=== PATIENT | female | born 1995 | race Caucasian/White ===

== ENCOUNTER 2018-05-24 12:47 | Observation (INO) | payer MEDICAID ==
[2018-05-24] MEDS ORDERED: ePHEDrine 50 MG/ML SDV IVPUSH ONE (18:18)
[2018-05-24] MEDS ORDERED: Lactated Ringers 1,000 ML IV ONE (18:18)
[2018-05-24] MEDS ORDERED: Sodium Chloride 0.9% 10 ML Syringe FLUSH PRN (18:18)
[2018-05-24] MEDS ORDERED: Acetaminophen 325 MG Tab PO PRN (18:18)
[2018-05-24] MEDS ORDERED: fentaNYL 100 MCG/2 ML SDV IVPUSH PRN (18:18)
[2018-05-24] MEDS ORDERED: Ondansetron 4 MG/2 ML SDV IV PRN (18:18)
[2018-05-24] MEDS ORDERED: Zolpidem 5 MG Tab PO PRN (21:19)
--- NOTE | 2018-05-24 21:38 | PCM.LDHP ---
L&D History of Present Illness - General Date of Service: 05/24/18 Admit Problem/Dx: Patient Status Order with Admit Dx/Problem 05/24/18 18:18 Patient Status [ADT] Routine Admission Diagnosis/Problem Admission Diagnosis/Problem - Related Data Allergies/Adverse Reactions: Allergies Allergy/AdvReac Type Severity Reaction Status Date / Time No Known Allergies Allergy Verified 05/24/18 12:55 Past Medical History - Past Health History Medical/Surgical History: Denies Medical/Surgical History Social & Family History - Family History HEENT: Reports: Impaired Vision Cardiac: Reports: Heart Murmur GI: Reports: GI bleed Neurological: Reports: TIA Endocrine/Metabolic: Reports: Diabetes, type II - Tobacco Use Smoking Status *Q: Never Smoker Second Hand Smoke Exposure: No - Caffeine Use Caffeine Use: Reports: None - Recreational Drug Use Recreational Drug Use: No H&P Review of Systems - Review of Systems: Review Of Systems: See Below General: Reports: No Symptoms HEENT: Reports: No Symptoms Pulmonary: Reports: No Symptoms Cardiovascular: Reports: No Symptoms Gastrointestinal: Reports: No Symptoms Genitourinary: Reports: No Symptoms Musculoskeletal: Reports: No Symptoms Skin: Reports: No Symptoms Psychiatric: Reports: No Symptoms Neurological: Reports: No Symptoms Hematologic/Lymphatic: Reports: No Symptoms Immunologic: Reports: No Symptoms L&D Exam - Exam Exam: See Below - Vital Signs Vital Signs: Last Vital Signs Temp 36.3 C 05/24/18 18:00 Pulse 79 05/24/18 18:00 Resp 16 05/24/18 18:00 BP 108/53 L 05/24/18 18:00 Pulse Ox 97 05/24/18 18:00 Weight: 77.111 kg - OB Specific Contraction Duration (sec): 70-90 Contraction Frequency (min): 4-8 Contraction Intensity: Moderate Presentation: Vertex - Viveros Score Viveros Score Cervix Position: Anterior Viveros Score Consistency: Soft Viveros Score Effacement: >80% Viveros Score Dilation: 3-4 cm Viveros Score 's Station: -1 ,0 Viveros Score Total: 11 - Exam General: Alert, Oriented, Cooperative HEENT: PERRLA, Conjunctiva Clear, EACs Clear, EOMI, Hearing Intact, Mucosa Moist & [place], Nares Patent, Normal Nasal Septum, Posterior Pharynx Clear, TMs Clear Neck: Supple, Trachea Midline Lungs: Clear to Auscultation, Normal Respiratory Effort Cardiovascular: Regular Rate, Regular Rhythm GI/Abdominal Exam: Normal Bowel Sounds, Soft, Non-Tender, No Organomegaly, No Distention, No Abnormal Bruit, No Mass, Pelvis Stable Genitourinary: Normal external exam, Normal bimanual exam, Normal speculum exam Back Exam: Normal Inspection, Full Range of Motion Extremities: Normal Inspection, Normal Range of Motion, Non-Tender, No Pedal Edema, Normal Capillary Refill Skin: Warm, Dry, Intact Neurological: Cranial Nerves Intact, Reflexes Equal Bilateral Psychiatric: Alert, Normal Affect, Normal Mood - Patient Data Lab Results Last 24 hrs: Laboratory Results - last 24 hr 05/24/18 05/24/18 05/24/18 Range/Units 13:03 13:21 18:18 WBC 12.2 H (4.5-11.0) K/uL RBC 4.16 (3.30-5.50) M/uL Hgb 13.3 (12.0-15.0) g/dL Hct 39.6 (36.0-48.0) % MCV 95 (80-98) fL MCH 32 H (27-31) pg MCHC 34 (32-36) % Plt Count 191 (150-400) K/uL Neut % (Auto) 71 H (36-66) % Lymph % (Auto) 17 L (24-44) % Power % (Auto) 10 H (2-6) % Eos % (Auto) 3 (2-4) % Baso % (Auto) 0 (0-1) % Urine Color Yellow Urine Appearance Slightly cloudy Urine pH 7.0 (4.5-8.0) Ur Specific [place] 1.015 (1.008-1.030) Urine Protein Negative (NEGATIVE) mg/dL Urine Glucose (UA) Normal (NEGATIVE) mg/dL Urine Ketones 15 H (NEGATIVE) mg/dL Urine Occult Blood Negative (NEGATIVE) Urine Nitrite Negative (NEGATIVE) Urine Bilirubin Negative (NEGATIVE) Urine Urobilinogen Normal (NORMAL) mg/dL Ur Leukocyte Esterase Negative (NEGATIVE) Urine RBC 0-5 (0-5) Urine WBC 0-5 (0-5) Ur Epithelial Cells Few Amorphous Sediment Not seen Urine Bacteria Not seen Urine Mucus Not seen Membrane Rupture Negative (NEGATIVE) Urine Opiates Screen (NEGATIVE) Ur Oxycodone Screen (NEGATIVE) Urine Methadone Screen (NEGATIVE) Ur Propoxyphene Screen (NEGATIVE) Ur Barbiturates Screen (NEGATIVE) Ur Tricyclics Screen (NEGATIVE) Ur Phencyclidine Scrn (NEGATIVE) Ur Amphetamine Screen (NEGATIVE) U Methamphetamines Scrn (NEGATIVE) Urine MDMA Screen (NEGATIVE) U Benzodiazepines Scrn (NEGATIVE) U Cocaine Metab Screen (NEGATIVE) U Marijuana (THC) Screen (NEGATIVE) 05/24/18 Range/Units 18:18 WBC (4.5-11.0) K/uL RBC (3.30-5.50) M/uL Hgb (12.0-15.0) g/dL Hct (36.0-48.0) % MCV (80-98) fL MCH (27-31) pg MCHC (32-36) % Plt Count (150-400) K/uL Neut % (Auto) (36-66) % Lymph % (Auto) (24-44) % Power % (Auto) (2-6) % Eos % (Auto) (2-4) % Baso % (Auto) (0-1) % Urine Color Urine Appearance Urine pH (4.5-8.0) Ur Specific [place] (1.008-1.030) Urine Protein (NEGATIVE) mg/dL Urine Glucose (UA) (NEGATIVE) mg/dL Urine Ketones (NEGATIVE) mg/dL Urine Occult Blood (NEGATIVE) Urine Nitrite (NEGATIVE) Urine Bilirubin (NEGATIVE) Urine Urobilinogen (NORMAL) mg/dL Ur Leukocyte Esterase (NEGATIVE) Urine RBC (0-5) Urine WBC (0-5) Ur Epithelial Cells Amorphous Sediment Urine Bacteria Urine Mucus Membrane Rupture (NEGATIVE) Urine Opiates Screen Negative (NEGATIVE) Ur Oxycodone Screen Negative (NEGATIVE) Urine Methadone Screen Negative (NEGATIVE) Ur Propoxyphene Screen Negative (NEGATIVE) Ur Barbiturates Screen Negative (NEGATIVE) Ur Tricyclics Screen Negative (NEGATIVE) Ur Phencyclidine Scrn Negative (NEGATIVE) Ur Amphetamine Screen Negative (NEGATIVE) U Methamphetamines Scrn Negative (NEGATIVE) Urine MDMA Screen Negative (NEGATIVE) U Benzodiazepines Scrn Negative (NEGATIVE) U Cocaine Metab Screen Negative (NEGATIVE) U Marijuana (THC) Screen Negative (NEGATIVE) Result Diagrams: 05/24/18 18:18 - Problem List (1) First stage of labor established SNOMED Code(s): 343856343 ICD Code: [id number] - Status: Acute Current Visit: Yes (2) SNOMED Code(s): 19265047 ICD Code: Z34.90 - ENCNTR FOR SUPRVSN OF NORMAL , UNSP, UNSP TRIMESTER Status: Acute Current Visit: Yes Qualifiers: Weeks of gestation: 39 weeks Qualified Code(s): Z3A.39 - 39 weeks gestation of Problem List Initiated/Reviewed/Updated: Yes Orders Last 24hrs: Active Orders 24 hr Category Date Time Status Patient Status [ADT] Routine ADT 05/24/18 18:18 Active Ambulate [RC] PER UNIT ROUTINE Care 05/24/18 18:18 Active Communication Order [RC] ASDIRECTED Care 05/24/18 18:18 Active Communication Order [RC] Per Unit Routine Care 05/24/18 18:18 Active Insert Urinary Catheter [OM.PC] ASDIRECTED Care 05/24/18 18:30 Ordered Local Anesthetic Infusion Pump [RC] ASDIRECTED Care 05/24/18 18:18 Active May Shower [RC] ASDIRECTED Care 05/24/18 18:18 Active Notify Provider Vital Signs [RC] PRN Care 05/24/18 18:18 Active Notify Provider [RC] PRN Care 05/24/18 18:18 Active OB Check [OM.PC] Click to Edit Care 05/24/18 12:49 Ordered PCEA Epidural [RC] ASDIRECTED Care 05/24/18 18:18 Active PCEA Epidural [RC] ASDIRECTED Care 05/24/18 18:19 Active Ready for Discharge [RC] PER UNIT ROUTINE Care 05/24/18 21:25 Active Up ad Sharon [RC] ASDIRECTED Care 05/24/18 18:18 Active Urinary Catheter Assessment [RC] ASDIRECTED Care 05/24/18 18:19 Active VTE/DVT Education [RC] Click to Edit Care 05/24/18 18:22 Active Verify Patient Consent Obtain [RC] ASDIRECTED Care 05/24/18 18:18 Active Vital Signs [RC] PER UNIT ROUTINE Care 05/24/18 18:18 Active Regular Diet [DIET] Diet 05/24/18 Dinner Active Acetaminophen [Tylenol] Med 05/24/18 18:18 Active 650 mg PO Q4H PRN Ondansetron [Zofran] Med 05/24/18 18:18 Active 4 mg IV Q4H PRN Sodium Chloride 0.9% [Saline Flush] Med 05/24/18 18:18 Active 10 ml FLUSH ASDIRECTED PRN Zolpidem [Ambien] Med 05/24/18 21:19 Active 5 mg PO BEDTIME PRN fentaNYL [Sublimaze] Med 05/24/18 18:18 Active 100 mcg IVPUSH Q1H PRN DVT/VTE Prophylaxis Reflex [OM.PC] Routine Oth 05/24/18 18:18 Ordered Epidural Catheter Management [OM.PC] Urgent Oth 05/24/18 18:18 Ordered Saline Lock Insert [OM.PC] Routine Oth 05/24/18 18:18 Ordered Resuscitation Status Routine Resus Stat 05/24/18 18:18 Ordered Medication Orders Acetaminophen (Tylenol) 650 mg PO Q4H PRN PRN Reason: Pain (Mild 1-3) and fever Fentanyl (Sublimaze) 100 mcg IVPUSH Q1H PRN PRN Reason: Pain (moderate 4-6) Ondansetron HCl (Zofran) 4 mg IV Q4H PRN PRN Reason: Nausea/Vomiting Sodium Chloride (Saline Flush) 10 ml FLUSH ASDIRECTED PRN PRN Reason: Keep Vein Open Zolpidem Tartrate (Ambien) 5 mg PO BEDTIME PRN PRN Reason: Insomnia Assessment/Plan Comment:: 05/24/2018 22 yo here at 39 3/7 gestational weeks Came in earlier thinking in labor SVE-3-4/80/-2 Contractions regular FHTs category one Patient still tolerating contractions with position changes at this time Plan- Continue to monitor labor Continue to monitor FHTs Pain medication per patient request Plan and anticipate a vaginal delivery
--- NOTE | 2018-05-24 21:39 | PCM.PNLD ---
Labor Progress Note - VS & Meds Vital Signs: Last Vital Signs Temp 36.3 C 05/24/18 18:00 Pulse 79 05/24/18 18:00 Resp 16 05/24/18 18:00 BP 108/53 L 05/24/18 18:00 Pulse Ox 97 05/24/18 18:00 Active Medications: Current Medications Acetaminophen (Tylenol) 650 mg PO Q4H PRN PRN Reason: Pain (Mild 1-3) and fever Fentanyl (Sublimaze) 100 mcg IVPUSH Q1H PRN PRN Reason: Pain (moderate 4-6) Ondansetron HCl (Zofran) 4 mg IV Q4H PRN PRN Reason: Nausea/Vomiting Sodium Chloride (Saline Flush) 10 ml FLUSH ASDIRECTED PRN PRN Reason: Keep Vein Open Zolpidem Tartrate (Ambien) 5 mg PO BEDTIME PRN PRN Reason: Insomnia Discontinued Medications Ephedrine Sulfate (Ephedrine Sulfate) 5 mg IVPUSH ONETIME ONE Stop: 05/24/18 18:19 Lactated Ringer's (Ringers, Lactated) 1,000 mls @ 999 mls/hr IV ONETIME ONE Stop: 05/24/18 19:18 - Uterine Contractions Uterine Monitoring Mode: External [place] Contraction Frequency (min): 4-8 Contraction Duration (sec): 70-90 Contraction Intensity: Moderate Uterine Resting Tone: Soft - Vaginal Exam Dilation (cm): 4 Effacement (Percent): 90 Cervical Position: Midposition Sterile Vaginal Exam Performed By: Inga Hernandez - Labor Progress (Free Text) Labor Progress: 05/24/2018 Labor stalled and now contractions are 4-8 minutes apart SVE remains unchanged Patient given options of sleeping here or going home Decision made to go home and return if more active labor Ambien 5mg PO given for sleep Education given on when to return to labor and delivery Discharged home now
== END 2018-05-24 21:45 | disposition home or self-care (01) ==
LOC: JP.OBCHECK 12:47 → JP.OB 18:15
PROVIDERS: ADMIT Advanced Practice Midwife; ATTEND Advanced Practice Midwife
DX: O47.1 False labor at or after 37 completed weeks of gestation (principal); Z3A.39 39 weeks gestation of pregnancy; O24.913 Unspecified diabetes mellitus in pregnancy, third trimester
CPT/HCPCS: 36415; 80305; 81001; 84112; 85025; 99211; A9270

== ENCOUNTER 2018-05-25 14:55 | Inpatient (IN) | payer MEDICAID ==
[2018-05-25] MEDS ORDERED: ePHEDrine 50 MG/ML SDV IVPUSH ONE (16:35)
[2018-05-25] MEDS ORDERED: Lactated Ringers 1,000 ML IV ONE (16:35)
[2018-05-25] MEDS ORDERED: Ondansetron 4 MG/2 ML SDV IV PRN (16:36)
[2018-05-25] MEDS ORDERED: Sodium Chloride 0.9% 10 ML Syringe FLUSH PRN (16:36)
--- NOTE | 2018-05-25 16:57 | PCM.LDHP ---
L&D History of Present Illness - General Date of Service: 05/25/18 Admit Problem/Dx: Patient Status Order with Admit Dx/Problem 05/25/18 16:36 Patient Status [ADT] Routine Admission Diagnosis/Problem Admission Diagnosis/Problem Source of Information: Patient History Limitations: Reports: No Limitations - Related Data Allergies/Adverse Reactions: Allergies Allergy/AdvReac Type Severity Reaction Status Date / Time No Known Allergies Allergy Verified 05/24/18 12:55 Home Medications: Home Meds PNV No.115/Iron Fumarate/FA [ 19 Chewable Tablet] 2 cap PO DAILY [History] Past Medical History - Past Health History Medical/Surgical History: Denies Medical/Surgical History Social & Family History - Family History HEENT: Reports: Impaired Vision Cardiac: Reports: Heart Murmur GI: Reports: GI bleed Neurological: Reports: TIA Endocrine/Metabolic: Reports: Diabetes, type II - Tobacco Use Smoking Status *Q: Never Smoker Second Hand Smoke Exposure: No - Caffeine Use Caffeine Use: Reports: None - Recreational Drug Use Recreational Drug Use: No H&P Review of Systems - Review of Systems: Review Of Systems: See Below General: Reports: No Symptoms HEENT: Reports: No Symptoms Pulmonary: Reports: No Symptoms Cardiovascular: Reports: No Symptoms Gastrointestinal: Reports: No Symptoms Genitourinary: Reports: No Symptoms Musculoskeletal: Reports: No Symptoms Skin: Reports: No Symptoms Psychiatric: Reports: No Symptoms Neurological: Reports: No Symptoms Hematologic/Lymphatic: Reports: No Symptoms Immunologic: Reports: No Symptoms L&D Exam - Exam Exam: See Below - Vital Signs Vital Signs: Last Vital Signs Temp 36.9 C 05/25/18 15:30 Pulse 102 H 05/25/18 15:30 Resp 16 05/25/18 15:30 BP 138/70 05/25/18 15:30 Pulse Ox 97 05/25/18 15:30 Weight: 77.564 kg - OB Specific Contraction Duration (sec): 80-90 Contraction Frequency (min): 3.5-4 Contraction Intensity: Moderate to Strong Presentation: Vertex - Viveros Score Viveros Score Cervix Position: Anterior Viveros Score Consistency: Soft Viveros Score Effacement: >80% Viveros Score Dilation: 3-4 cm Viveros Score Infant's Station: -1 ,0 Viveros Score Total: 11 - Exam General: Alert, Oriented HEENT: PERRLA, Conjunctiva Clear, EACs Clear, EOMI, Hearing Intact, Mucosa Moist & [place], Nares Patent, Normal Nasal Septum, Posterior Pharynx Clear, TMs Clear Neck: Supple, Trachea Midline Lungs: Clear to Auscultation, Normal Respiratory Effort Cardiovascular: Regular Rate, Regular Rhythm GI/Abdominal Exam: Normal Bowel Sounds, Soft, Non-Tender, No Organomegaly, No Distention, No Abnormal Bruit, No Mass, Pelvis Stable Rectal Exam: Normal Exam, Normal Rectal Tone Genitourinary: Normal external exam, Normal bimanual exam Back Exam: Normal Inspection, Full Range of Motion Extremities: Normal Inspection, Normal Range of Motion, Non-Tender, No Pedal Edema, Normal Capillary Refill Skin: Warm, Dry, Intact Neurological: Cranial Nerves Intact, Reflexes Equal Bilateral Psychiatric: Alert, Normal Affect, Normal Mood - Patient Data Lab Results Last 24 hrs: Laboratory Results - last 24 hr 05/25/18 05/25/18 05/25/18 Range/Units 15:09 15:42 16:36 Urine Color Yellow Urine Appearance Slightly cloudy Urine pH 7.0 (4.5-8.0) Ur Specific [place] 1.010 (1.008-1.030) Urine Protein Trace (NEGATIVE) mg/dL Urine Glucose (UA) Normal (NEGATIVE) mg/dL Urine Ketones Negative (NEGATIVE) mg/dL Urine Occult Blood Large (NEGATIVE) Urine Nitrite Negative (NEGATIVE) Urine Bilirubin Negative (NEGATIVE) Urine Urobilinogen Normal (NORMAL) mg/dL Ur Leukocyte Esterase Moderate (NEGATIVE) Urine RBC 0-5 (0-5) Urine WBC 10-20 H (0-5) Ur Epithelial Cells Many Amorphous Sediment Not seen Urine Bacteria Moderate Urine Mucus Few Membrane Rupture Positive H (NEGATIVE) Urine Opiates Screen Negative (NEGATIVE) Ur Oxycodone Screen Negative (NEGATIVE) Urine Methadone Screen Negative (NEGATIVE) Ur Propoxyphene Screen Negative (NEGATIVE) Ur Barbiturates Screen Negative (NEGATIVE) Ur Tricyclics Screen Negative (NEGATIVE) Ur Phencyclidine Scrn Negative (NEGATIVE) Ur Amphetamine Screen Negative (NEGATIVE) U Methamphetamines Scrn Negative (NEGATIVE) Urine MDMA Screen Negative (NEGATIVE) U Benzodiazepines Scrn Negative (NEGATIVE) U Cocaine Metab Screen Negative (NEGATIVE) U Marijuana (THC) Screen Negative (NEGATIVE) - Problem List (1) SROM (spontaneous rupture of membranes) SNOMED Code(s): 168061654 ICD Code: ZCP7059 - Status: Acute Current Visit: Yes (2) First stage of labor established SNOMED Code(s): 220346646 ICD Code: UYQ7549 - Status: Acute Current Visit: No (3) SNOMED Code(s): 74305049 ICD Code: Z34.90 - ENCNTR FOR SUPRVSN OF NORMAL , UNSP, UNSP TRIMESTER Status: Acute Current Visit: No Qualifiers: Weeks of gestation: 39 weeks Problem List Initiated/Reviewed/Updated: Yes Orders Last 24hrs: Active Orders 24 hr Category Date Time Status Patient Status [ADT] Routine ADT 05/25/18 16:36 Active Communication Order [RC] ASDIRECTED Care 05/25/18 16:36 Active Communication Order [RC] Per Unit Routine Care 05/25/18 16:35 Active Heart Tones [RC] PER UNIT ROUTINE Care 05/25/18 16:36 Active Non Stress Test [RC] Click to Edit Care 05/25/18 16:36 Active Insert Urinary Catheter [OM.PC] ASDIRECTED Care 05/25/18 16:45 Ordered Local Anesthetic Infusion Pump [RC] ASDIRECTED Care 05/25/18 16:35 Active May Shower [RC] ASDIRECTED Care 05/25/18 16:36 Active Notify Provider Vital Signs [RC] PRN Care 05/25/18 16:36 Active Notify Provider [RC] PRN Care 05/25/18 16:36 Active PCEA Epidural [RC] ASDIRECTED Care 05/25/18 16:35 Active PCEA Epidural [RC] ASDIRECTED Care 05/25/18 16:35 Active Up ad Sharon [RC] ASDIRECTED Care 05/25/18 16:36 Active Urinary Catheter Assessment [RC] ASDIRECTED Care 05/25/18 16:35 Active Verify Patient Consent Obtain [RC] ASDIRECTED Care 05/25/18 16:35 Active Vital Signs [RC] PER UNIT ROUTINE Care 05/25/18 16:36 Active Regular Diet [DIET] Diet 05/25/18 Dinner Active CBC WITH AUTO DIFF [HEME] Routine Lab 05/25/18 16:36 Ordered Lactated Ringers [Ringers, Lactated] 1,000 ml Med 05/25/18 16:35 Active IV ONETIME Ondansetron [Zofran] Med 05/25/18 16:36 Active 4 mg IV Q4H PRN Sodium Chloride 0.9% [Saline Flush] Med 05/25/18 16:36 Active 10 ml FLUSH ASDIRECTED PRN Epidural Catheter Management [OM.PC] Urgent Oth 05/25/18 16:35 Ordered Saline Lock Insert [OM.PC] Routine Oth 05/25/18 16:36 Ordered Resuscitation Status Routine Resus Stat 05/25/18 16:36 Ordered Medication Orders Lactated Ringer's (Ringers, Lactated) 1,000 mls @ 999 mls/hr IV ONETIME ONE Stop: 05/25/18 17:35 Ondansetron HCl (Zofran) 4 mg IV Q4H PRN PRN Reason: Nausea/Vomiting Sodium Chloride (Saline Flush) 10 ml FLUSH ASDIRECTED PRN PRN Reason: Keep Vein Open Assessment/Plan Comment:: 05/25/2018 22yo here at 39 4/7 weeks gestation SROM at home at 1345 Amnisure positive FHTs category one Contractions regular Patient tolerating pain currently but thinks she will want an epidural Plan- Monitor labor Monitor FHTs Up ad sharon Regular diet CBC, UA Start Pitocin per protocol Pain management per patient request Plan and anticipate a vaginal delivery
[2018-05-25] MEDS: Lactated Ringers 1,000 ML IV SCH ×2 (17:59→21:54)
[2018-05-25] MEDS ORDERED: ePHEDrine 50 MG/ML SDV ONE (21:59)
[2018-05-25] MEDS ORDERED: Ropivacaine 100 ML ONE (22:12)
[2018-05-25] MEDS ORDERED: Naloxone 0.4 MG/ML SDV IVPUSH PRN (23:18)
[2018-05-25] MEDS ORDERED: Ropivacaine 100 ML EPIDUR SCH (23:18)
[2018-05-25] MEDS ORDERED: ePHEDrine 50 MG/ML SDV IV PRN (23:18)
[2018-05-26] MEDS ORDERED: Acetaminophen 325 MG Tab PO PRN (00:40)
--- NOTE | 2018-05-26 01:36 | ANES ---
DATE OF SERVICE: 05/25/2018 LABOR EPIDURAL NOTE I was called this evening by the OB Department for a young lady requesting a labor epidural. I was at the bedside at approximately 2215 hours. Risks and benefits were reviewed with the patient and significant other. A brief history and physical was done with the patient. The patient has had a normal . Overall, no abnormal bleeding issues. No high blood pressure noted. No diabetes. I did notice on her H and P that she has a history of a murmur, but upon auscultation, no murmur was identified by me. Heart rate was regular and strong. The patient verbalized her understanding of the risks and the benefits and wishes to proceed with the labor epidural today. She was then sat at the edge of the bed. Betadine prep x3 to the lumbar region was done. Sterile drape was placed. 1% lidocaine skin wheal and deep was done. A 17-gauge Tuohy needle was inserted at approximately the L3- 4 position. Loss of resistance was achieved at approximately 5 to 5.5 cm. Catheter was then easily threaded. Touhy was then pulled and catheter was pulled back to approximately 13 cm. I then proceeded to give the patient a 3 mL test dose and sterile drape was then taken down. Catheter was fully secured at the 13 cm. The patient was then laid in the supine position with slight head of the bed elevation and left uterine displacement. The patient showed no signs of intravascular injection of local or subarachnoid block. I then proceeded to give 10 mL of 0.2% ropivacaine bolus via the epidural and started her on a 0.2% ropivacaine drip at 12 mL an hour. The patient tolerated the bolus without difficulty. Blood pressure was stable. Please refer to the nurse's notes for vital signs. Platelet count prior to doing the epidural was noted to be 186. We will continue to monitor the patient closely. Gopi Good CRNA /[id number]
[2018-05-26] MEDS: Lactated Ringers 1,000 ML IV SCH (01:37)
--- NOTE | 2018-05-26 02:58 | PCM.PNLD ---
Labor Progress Note - VS & Meds Vital Signs: Last Vital Signs Temp 35.9 C 05/26/18 01:40 Pulse 97 05/26/18 01:40 Resp 18 05/26/18 01:40 BP 101/54 L 05/26/18 01:40 Pulse Ox 98 05/26/18 01:40 Active Medications: Current Medications Acetaminophen (Tylenol) 650 mg PO Q4H PRN PRN Reason: Pain (mild 1-3) Ephedrine Sulfate (Ephedrine Sulfate) 5 - 10 mg IV ASDIRECTED PRN PRN Reason: Systolic BP less than 100 Oxytocin/Sodium Chloride (Pitocin In Ns 20 Units/1,000 Ml) 20 unit in 1,000 mls @ 6 mls/hr IV TITRATE BERNARD; Protocol Last Titration: 05/26/18 00:45 Dose: 14 munits/min, 42 mls/hr Lactated Ringer's (Ringers, Lactated) 1,000 mls @ 125 mls/hr IV ASDIRECTED BERNARD Last Admin: 05/26/18 01:37 Dose: 125 mls/hr Ropivacaine (Naropin 0.2%) 100 mls @ 12 mls/hr EPIDUR ASDIRECTED BERNARD; Protocol Naloxone HCl (Narcan) 0.1 mg IVPUSH Q5M PRN PRN Reason: IF RESP RATE LESS THAN 6 Ondansetron HCl (Zofran) 4 mg IV Q4H PRN PRN Reason: Nausea/Vomiting Sodium Chloride (Saline Flush) 10 ml FLUSH ASDIRECTED PRN PRN Reason: Keep Vein Open Discontinued Medications Ephedrine Sulfate (Ephedrine Sulfate) 5 mg IVPUSH ONETIME ONE Stop: 05/25/18 16:36 Ephedrine Sulfate (Ephedrine Sulfate) Confirm Administered Dose 50 mg .ROUTE .STK-MED ONE Stop: 05/25/18 22:00 Lactated Ringer's (Ringers, Lactated) 1,000 mls @ 999 mls/hr IV ONETIME ONE Stop: 05/25/18 17:35 Last Admin: 05/25/18 16:50 Dose: 999 mls/hr Ropivacaine (Naropin 0.2%) Confirm Administered Dose 100 mls @ as directed .ROUTE .STK-MED ONE Stop: 05/25/18 22:13 - Uterine Contractions Uterine Monitoring Mode: External [place] Contraction Frequency (min): 2-3 Contraction Duration (sec): 40-60 Contraction Intensity: Moderate Uterine Resting Tone: Soft - Monitoring Heart Rate (FHR) Variability: Moderate (6-25 bmp) - Vaginal Exam Dilation (cm): 4 Effacement (Percent): 90 Cervical Position: Midposition Sterile Vaginal Exam Performed By: Inga Hernandez - Labor Progress (Free Text) Labor Progress: 05/25/2018 Patient up at side of the bed. at bedside and supportive. FHTs category one Contractions regular Plan- Continue to monitor labor Continue to monitor FHTs Pain management per patient request Plan and anticipate a vaginal delivery
--- NOTE | 2018-05-26 03:02 | PCM.PNLD ---
Labor Progress Note - VS & Meds Vital Signs: Last Vital Signs Temp 35.9 C 05/26/18 01:40 Pulse 97 05/26/18 01:40 Resp 18 05/26/18 01:40 BP 101/54 L 05/26/18 01:40 Pulse Ox 98 05/26/18 01:40 Active Medications: Current Medications Acetaminophen (Tylenol) 650 mg PO Q4H PRN PRN Reason: Pain (mild 1-3) Ephedrine Sulfate (Ephedrine Sulfate) 5 - 10 mg IV ASDIRECTED PRN PRN Reason: Systolic BP less than 100 Oxytocin/Sodium Chloride (Pitocin In Ns 20 Units/1,000 Ml) 20 unit in 1,000 mls @ 6 mls/hr IV TITRATE BERNARD; Protocol Last Titration: 05/26/18 00:45 Dose: 14 munits/min, 42 mls/hr Lactated Ringer's (Ringers, Lactated) 1,000 mls @ 125 mls/hr IV ASDIRECTED BERNARD Last Admin: 05/26/18 01:37 Dose: 125 mls/hr Ropivacaine (Naropin 0.2%) 100 mls @ 12 mls/hr EPIDUR ASDIRECTED BERNARD; Protocol Naloxone HCl (Narcan) 0.1 mg IVPUSH Q5M PRN PRN Reason: IF RESP RATE LESS THAN 6 Ondansetron HCl (Zofran) 4 mg IV Q4H PRN PRN Reason: Nausea/Vomiting Sodium Chloride (Saline Flush) 10 ml FLUSH ASDIRECTED PRN PRN Reason: Keep Vein Open Discontinued Medications Ephedrine Sulfate (Ephedrine Sulfate) 5 mg IVPUSH ONETIME ONE Stop: 05/25/18 16:36 Ephedrine Sulfate (Ephedrine Sulfate) Confirm Administered Dose 50 mg .ROUTE .STK-MED ONE Stop: 05/25/18 22:00 Lactated Ringer's (Ringers, Lactated) 1,000 mls @ 999 mls/hr IV ONETIME ONE Stop: 05/25/18 17:35 Last Admin: 05/25/18 16:50 Dose: 999 mls/hr Ropivacaine (Naropin 0.2%) Confirm Administered Dose 100 mls @ as directed .ROUTE .STK-MED ONE Stop: 05/25/18 22:13 - Uterine Contractions Uterine Monitoring Mode: External [place] Contraction Frequency (min): 2-3 Contraction Duration (sec): 40-60 Contraction Intensity: Moderate Uterine Resting Tone: Soft - Monitoring Heart Rate (FHR) Variability: Moderate (6-25 bmp) - Vaginal Exam Dilation (cm): 4 Effacement (Percent): 90 Cervical Position: Midposition Sterile Vaginal Exam Performed By: Inga Hernandez - Labor Progress (Free Text) Labor Progress: 05/26/2018 AROM of forebag of m[place]ma[place] done at this time Contractions regular FHTs category one Patient comfortable with epidural Pitocin going per protocol Plan- Continue to monitor labor Continue to monitor FHTs Continue Pitocin per protocol Continue epidural for pain control Plan and anticipate a vaginal delivery
--- NOTE | 2018-05-26 05:51 | PCM.PNLD ---
Labor Progress Note - VS & Meds Vital Signs: Last Vital Signs Temp 35.9 C 05/26/18 01:40 Pulse 97 05/26/18 01:40 Resp 18 05/26/18 01:40 BP 101/54 L 05/26/18 01:40 Pulse Ox 98 05/26/18 01:40 Active Medications: Current Medications Acetaminophen (Tylenol) 650 mg PO Q4H PRN PRN Reason: Pain (mild 1-3) Ephedrine Sulfate (Ephedrine Sulfate) 5 - 10 mg IV ASDIRECTED PRN PRN Reason: Systolic BP less than 100 Oxytocin/Sodium Chloride (Pitocin In Ns 20 Units/1,000 Ml) 20 unit in 1,000 mls @ 6 mls/hr IV TITRATE BERNARD; Protocol Last Titration: 05/26/18 03:27 Dose: 8 munits/min, 24 mls/hr Lactated Ringer's (Ringers, Lactated) 1,000 mls @ 125 mls/hr IV ASDIRECTED BERNARD Last Admin: 05/26/18 01:37 Dose: 125 mls/hr Ropivacaine (Naropin 0.2%) 100 mls @ 12 mls/hr EPIDUR ASDIRECTED BERNARD; Protocol Last Admin: 05/26/18 04:05 Dose: 12 mls/hr, 12 mls/hr Naloxone HCl (Narcan) 0.1 mg IVPUSH Q5M PRN PRN Reason: IF RESP RATE LESS THAN 6 Ondansetron HCl (Zofran) 4 mg IV Q4H PRN PRN Reason: Nausea/Vomiting Sodium Chloride (Saline Flush) 10 ml FLUSH ASDIRECTED PRN PRN Reason: Keep Vein Open Discontinued Medications Ephedrine Sulfate (Ephedrine Sulfate) 5 mg IVPUSH ONETIME ONE Stop: 05/25/18 16:36 Last Admin: 05/26/18 05:31 Dose: Not Given Ephedrine Sulfate (Ephedrine Sulfate) Confirm Administered Dose 50 mg .ROUTE .STK-MED ONE Stop: 05/25/18 22:00 Last Admin: 05/26/18 05:32 Dose: Not Given Lactated Ringer's (Ringers, Lactated) 1,000 mls @ 999 mls/hr IV ONETIME ONE Stop: 05/25/18 17:35 Last Admin: 05/25/18 16:50 Dose: 999 mls/hr Ropivacaine (Naropin 0.2%) Confirm Administered Dose 100 mls @ as directed .ROUTE .STK-MED ONE Stop: 05/25/18 22:13 - Uterine Contractions Uterine Monitoring Mode: External [place] Contraction Frequency (min): 2-3 Contraction Duration (sec): 50-120 Contraction Intensity: Moderate to Strong Uterine Resting Tone: Soft - Monitoring Heart Rate (FHR) Variability: Moderate (6-25 bmp) - Vaginal Exam Dilation (cm): 10 Effacement (Percent): 100 Station: 0 Cervical Position: Anterior Sterile Vaginal Exam Performed By: Inga Hernandez - Labor Progress (Free Text) Labor Progress: 05/26/2018 Patient progressing nicely Currently 10/100/0 FHTs category one Contractions regular Plan- Continue to monitor labor Continue to monitor FHTs Continue epidural for pain management Continue Pitocin per protocol Plan and anticipate a vaginal delivery
[2018-05-26] MEDS ORDERED: Methylergonovine 0.2 MG/1 ML Amp ONE (08:02)
[2018-05-26] MEDS ORDERED: Carboprost Tromethamine 250 MCG/1 ML Amp ONE (08:02)
[2018-05-26] MEDS ORDERED: Misoprostol 200 MCG Tab ONE (08:02)
[2018-05-26] MEDS ORDERED: Methylergonovine 0.2 MG/1 ML Amp IM ONE (08:04)
[2018-05-26] MEDS ORDERED: Misoprostol 200 MCG Tab RECTAL ONE (08:33)
[2018-05-26] MEDS ORDERED: Ibuprofen 200 MG Tab, 24 Tab Bulk Bottle PO PRN (09:40)
[2018-05-26] MEDS ORDERED: Lanolin 100% Cream 40 GM Tube TOP PRN (09:40)
[2018-05-26] MEDS ORDERED: Benzocaine 20% Top Spray 56 GM Bottle TOP PRN (09:40)
[2018-05-26] MEDS ORDERED: Acetaminophen 325 MG Tab, 50 Tab Bulk Bottle PO PRN (09:40)
[2018-05-26] MEDS ORDERED: Witch Hazel Medicated Pads 100/Jar TOP PRN (09:40)
[2018-05-26] MEDS ORDERED: Acetaminophen/Codeine 300-30 MG Tab PO PRN (09:40)
[2018-05-26] MEDS: Docusate Sodium 100 MG Cap PO PRN (16:11)
--- NOTE | 2018-05-26 16:50 | PCM.DEL ---
L & D Note - General Info Date of Service: 05/26/18 Mother's Due Date: 05/28/18 - Delivery Note Labor: Spontaneous, Augmented by Oxytocin Delivery Outcome: Livebirth Infant Delivery Method: Spontaneous Vaginal Delivery-Single Infant Delivery Mode: Spontaneous Presentation: Right Occiput Anterior (EDWIN) Nuchal Cord: None Anesthesia Type: Epidural Amniotic Fluid Description: Clear Episiotomy Type: Right Mediolateral Laceration: None Suture type: Chromic Suture size: 3-0 Placenta: Intact, Spontaneous Cord: 3 Vessels Estimated Blood Loss: 500 Resuscitation Needed: No Adrian: Bulb Syringe, Stimulated, Warmed Provider: Inga Hernandez Post Delivery Events: Hemorrhage Second Stage Interventions: Reports: Encouragement Given, Laboring Down, Pushing Effectively, Pushing, Left Side, Pushing, McRobert's Position, Pushing, Right Side Delivery Comments (Free Text/Narrative):: 05/26/2018 22 yo delivered a viable female at 39 5/7 gestational weeks in EDWIN position vaginally with a vacuum assist at 0757 on 05/26/2018. Three pulls on vacuum, no pop offs noted. A mediolateral episiotomy was cut before delivery of the head. was then placed on mothers abdomen on prewarmed blankets, dried, and stimulated. Cord was noted to be on the shorter end so cord was double clamped and cut by provider shortly after delayed cord clamping. then was brought up on mothers just and bulb suctioned. Infant began to cry [id number]/8, weight-8lbs 14.7oz, length-20.5 inches. Placenta spontaneous and intact, 3 vessel cord. EBL-500ml, Episiotomy repaired in usual fashion, no other lacerations noted of cervix, vagina, perineum, vagina, or rectum. Infant now skin to skin with mother and both are in stable condition. Stages- [id number] Vacuum Extractor Progress Note - Alternative Labor Strategies Considered Alternative Labor Strategies Considered:: Reports: Yes Strategies Considered:: Reports: Contraction Intensity Adequate, Position Changes Used to Facilitate Rotation & Descent, Empty Bladder, Rest Indications Considered:: Reports: Yes Indications:: Reports: Prolonged 2nd Stage Time Out:: Reports: Yes - Patient Prepared Patient Prepared:: Reports: Yes Informed Consent:: Reports: Yes Risks: Reports: Yes Risks Include:: Reports: Laceration, Shoulder Dystocia, Maternal Injury Anesthesia/Analgesia Adequate:: Reports: Yes - Probability of Success High Probability of Success:: Reports: Yes Weight Estimated:: Reports: LGA Patient Diabetic:: Reports: No Pelvis Adequate:: Reports: Yes Position:: EDWIN Asynclitic:: Reports: No Station:: +2 - Application Time Maximum Application Time & Number of Pop-Offs Predetermined:: Reports: Yes Total Application Time (min): *max=20min: 1 Number of Times Cup Disengaged:: 0 Type of Vacuum Used:: Reports: Cup: Soft Vacuum Extraction: Successful - Exit Strategy Exit strategy available:: Reports: Yes and resuscitation teams readily available:: Reports: Yes - General Info Date of Service: 05/26/18 Functional Status: Reports: Pain Controlled - Review of Systems General: Reports: No Symptoms HEENT: Reports: No Symptoms Pulmonary: Reports: No Symptoms Cardiovascular: Reports: No Symptoms Gastrointestinal: Reports: No Symptoms Genitourinary: Reports: No Symptoms Musculoskeletal: Reports: No Symptoms Skin: Reports: No Symptoms Neurological: Reports: No Symptoms Psychiatric: Reports: No Symptoms - Patient Data Vitals - Most Recent: Last Vital Signs Temp 35.9 C 05/26/18 15:23 Pulse 64 05/26/18 15:23 Resp 16 05/26/18 15:23 BP 108/55 L 05/26/18 15:23 Pulse Ox 98 05/26/18 15:23 Weight - Most Recent: 77.564 kg I&O - Last 24 Hours: Intake & Output 05/26/18 05/26/18 05/26/18 06:59 14:59 22:59 Intake Total 1090 3275 Output Total 400 Balance 690 3275 Lab Results Last 24 Hours: Laboratory Results - last 24 hr 05/25/18 05/25/18 Range/Units 16:36 17:00 WBC 11.1 H (4.5-11.0) K/uL RBC 4.26 (3.30-5.50) M/uL Hgb 13.6 (12.0-15.0) g/dL Hct 40.5 (36.0-48.0) % MCV 95 (80-98) fL MCH 32 H (27-31) pg MCHC 34 (32-36) % Plt Count 186 (150-400) K/uL Neut % (Auto) 70 H (36-66) % Lymph % (Auto) 17 L (24-44) % [place] % (Auto) 9 H (2-6) % Eos % (Auto) 4 (2-4) % Baso % (Auto) 0 (0-1) % Urine Opiates Screen Negative (NEGATIVE) Ur Oxycodone Screen Negative (NEGATIVE) Urine Methadone Screen Negative (NEGATIVE) Ur Propoxyphene Screen Negative (NEGATIVE) Ur Barbiturates Screen Negative (NEGATIVE) Ur Tricyclics Screen Negative (NEGATIVE) Ur Phencyclidine Scrn Negative (NEGATIVE) Ur Amphetamine Screen Negative (NEGATIVE) U Methamphetamines Scrn Negative (NEGATIVE) Urine MDMA Screen Negative (NEGATIVE) U Benzodiazepines Scrn Negative (NEGATIVE) U Cocaine Metab Screen Negative (NEGATIVE) U Marijuana (THC) Screen Negative (NEGATIVE) Med Orders - Current: Current Medications Acetaminophen (Tylenol) 650 mg PO Q4H PRN PRN Reason: Pain (mild 1-3) Acetaminophen (Tylenol Bulk Bottle) 325 - 650 mg PO Q4H PRN PRN Reason: Pain Last Admin: 05/26/18 10:10 Dose: 325 mg Acetaminophen/Codeine Phosphate (Tylenol With Codeine No.3 300mg/30mg) 1 tab PO Q4H PRN PRN Reason: Pain (moderate 4-6) Last Admin: 05/26/18 10:29 Dose: 1 tab Benzocaine (Dfny-W-Ecrxgoi 20% [place]) 0 gm TOP Q4H PRN PRN Reason: Perineal Comfort Measure Last Admin: 05/26/18 10:10 Dose: 1 applic Docusate Sodium (Colace) 100 mg PO BID PRN PRN Reason: Constipation Last Admin: 05/26/18 16:11 Dose: 100 mg Emollient Ointment (Lansinoh Hpa) 0 gm TOP ASDIRECTED PRN PRN Reason: Sore Nipples Last Admin: 05/26/18 10:10 Dose: 1 applic Ephedrine Sulfate (Ephedrine Sulfate) 5 - 10 mg IV ASDIRECTED PRN PRN Reason: Systolic BP less than 100 Oxytocin/Sodium Chloride (Pitocin In Ns 20 Units/1,000 Ml) 20 unit in 1,000 mls @ 6 mls/hr IV TITRATE BERNARD; Protocol Last Titration: 05/26/18 06:30 Dose: 6 munits/min, 18 mls/hr Lactated Ringer's (Ringers, Lactated) 1,000 mls @ 125 mls/hr IV ASDIRECTED BERNARD Last Admin: 05/26/18 01:37 Dose: 125 mls/hr Ropivacaine (Naropin 0.2%) 100 mls @ 12 mls/hr EPIDUR ASDIRECTED BERNARD; Protocol Last Admin: 05/26/18 04:05 Dose: 12 mls/hr, 12 mls/hr Ibuprofen (Motrin Bulk Bottle) 600 mg PO Q6H PRN PRN Reason: Pain Last Admin: 05/26/18 10:09 Dose: 600 mg Naloxone HCl (Narcan) 0.1 mg IVPUSH Q5M PRN PRN Reason: IF RESP RATE LESS THAN 6 Ondansetron HCl (Zofran) 4 mg IV Q4H PRN PRN Reason: Nausea/Vomiting Sodium Chloride (Saline Flush) 10 ml FLUSH ASDIRECTED PRN PRN Reason: Keep Vein Open Witch Laurita (Tucks) 1 pad TOP ASDIRECTED PRN PRN Reason: Hemorrhoids Last Admin: 05/26/18 16:10 Dose: 1 package Discontinued Medications Carboprost Tromethamine (Hemabate Ds) Confirm Administered Dose 250 mcg .ROUTE .STK-MED ONE Stop: 05/26/18 08:03 Last Admin: 05/26/18 09:05 Dose: Not Given Ephedrine Sulfate (Ephedrine Sulfate) 5 mg IVPUSH ONETIME ONE Stop: 05/25/18 16:36 Last Admin: 05/26/18 05:31 Dose: Not Given Ephedrine Sulfate (Ephedrine Sulfate) Confirm Administered Dose 50 mg .ROUTE .STK-MED ONE Stop: 05/25/18 22:00 Last Admin: 05/26/18 05:32 Dose: Not Given Lactated Ringer's (Ringers, Lactated) 1,000 mls @ 999 mls/hr IV ONETIME ONE Stop: 05/25/18 17:35 Last Admin: 05/25/18 16:50 Dose: 999 mls/hr Ropivacaine (Naropin 0.2%) Confirm Administered Dose 100 mls @ as directed .ROUTE .STK-MED ONE Stop: 05/25/18 22:13 Oxytocin/Sodium Chloride (Pitocin In Ns 20 Units/1,000 Ml) 20 unit in 1,000 mls @ 999 mls/hr IV ONETIME ONE Stop: 05/26/18 09:30 Last Admin: 05/26/18 08:42 Dose: 999 mls/hr Methylergonovine Maleate (Methergine) 0.2 mg IM NOW ONE Stop: 05/26/18 08:05 Last Admin: 05/26/18 08:04 Dose: 0.2 mg Misoprostol (Cytotec) 800 mcg RECTAL ONETIME ONE Stop: 05/26/18 08:34 Last Admin: 05/26/18 08:33 Dose: 800 mcg - Exam General: Alert, Oriented, Cooperative HEENT: Pupils Equal, Pupils Reactive, EOMI, Mucous Membr. Moist/[place] Neck: Supple Lungs: Clear to Auscultation, Normal Respiratory Effort Cardiovascular: Regular Rate, Regular Rhythm GI/Abdominal Exam: Normal Bowel Sounds, Soft, Non-Tender, No Organomegaly, No Distention, No Abnormal Bruit, No Mass, Pelvis Stable (Female) Exam: Normal External Exam Back Exam: Normal Inspection, Full Range of Motion Extremities: Normal Inspection, Normal Range of Motion, Non-Tender, No Pedal Edema, Normal Capillary Refill Skin: Warm, Dry, Intact Neurological: No New Focal Deficit Psy/Mental Status: Alert, Normal Affect, Normal Mood - Problem List & Annotations (1) SROM (spontaneous rupture of membranes) SNOMED Code(s): 967882346 Code(s): GXW1243 - Status: Acute Current Visit: Yes (2) First stage of labor established SNOMED Code(s): 488560865 Code(s): NJO2882 - Status: Acute Current Visit: No (3) SNOMED Code(s): 05998711 Code(s): Z34.90 - ENCNTR FOR SUPRVSN OF NORMAL , UNSP, UNSP TRIMESTER Status: Acute Current Visit: No Qualifiers: Weeks of gestation: 39 weeks (4) Normal vaginal delivery SNOMED Code(s): 36464392 Code(s): O80 - ENCOUNTER FOR FULL-TERM UNCOMPLICATED DELIVERY Status: Acute Current Visit: Yes (5) Laceration of vagina SNOMED Code(s): 554438122 Code(s): S31.41XA - LACERATION W/O FOREIGN BODY OF VAGINA AND VULVA, INIT ENCNTR Status: Acute Current Visit: Yes Qualifiers: Encounter type: initial encounter Qualified Code(s): S31.41XA - Laceration without foreign body of vagina and vulva, initial encounter Annotation/Comment:: episiotomy was cut mediolateral (6) Discomfort at episiotomy site SNOMED Code(s): 760968384, 546939604 Code(s): G89.18 - OTHER ACUTE POSTPROCEDURAL PAIN Status: Acute Current Visit: Yes (7) Vacuum extractor delivery, delivered SNOMED Code(s): 641201168 Code(s): O66.5 - ATTEMPTED APPLICATION OF VACUUM EXTRACTOR AND FORCEPS Status: Acute Current Visit: Yes (8) () SNOMED Code(s): 262142362 Code(s): Z78.9 - OTHER SPECIFIED HEALTH STATUS Status: Acute Current Visit: Yes - Problem List Review Problem List Initiated/Reviewed/Updated: Yes - My Orders Last 24 Hours: My Active Orders 05/25/18 16:35 Epidural Catheter Management [OM.PC] Urgent 05/25/18 16:36 Patient Status [ADT] Routine May Shower [RC] ASDIRECTED Notify Provider Vital Signs [RC] PRN Up ad Coy [RC] ASDIRECTED Vital Signs [RC] PER UNIT ROUTINE Ondansetron [Zofran] 4 mg IV Q4H PRN Sodium Chloride 0.9% [Saline Flush] 10 ml FLUSH ASDIRECTED PRN Saline Lock Insert [OM.PC] Routine Resuscitation Status Routine 05/25/18 16:45 Insert Urinary Catheter [OM.PC] ASDIRECTED 05/25/18 17:00 Oxytocin/Normal Saline [Pitocin in NS 20 Units/1,000 ML] 20 unit in 1,000 ml IV TITRATE 05/25/18 18:00 Lactated Ringers [Ringers, Lactated] 1,000 ml IV ASDIRECTED 05/25/18 23:18 Naloxone [Narcan] 0.1 mg IVPUSH Q5M PRN Ropivacaine [Naropin 0.2%] 100 ml EPIDUR ASDIRECTED ePHEDrine [ePHEDrine sulfate] 5 - 10 mg IV ASDIRECTED PRN 05/25/18 Dinner Regular Diet [DIET] 05/26/18 00:40 Acetaminophen [Tylenol] 650 mg PO Q4H PRN 05/26/18 09:40 Patient Status [ADT] Routine Ambulate [RC] PER UNIT ROUTINE Vital Signs [RC] PFP Acetaminophen [Tylenol Bulk Bottle] 325 - 650 mg PO Q4H PRN Acetaminophen/Codeine [Tylenol with Codeine No.3 300MG/30MG] 1 tab PO Q4H PRN Benzocaine [Knsx-I-[place] 20% Garvin] See Dose Instructions TOP Q4H PRN Docusate Sodium [Colace] 100 mg PO BID PRN Ibuprofen [Motrin Bulk Bottle] 600 mg PO Q6H PRN Lanolin [Lansinoh HPA] 0 gm TOP ASDIRECTED PRN Witch Laurita [Tucks] 1 pad TOP ASDIRECTED PRN Assess Lochia [WOMSER] Per Unit Routine Assess Uterine Involution [WOMSER] Per Unit Routine DVT/VTE Prophylaxis Reflex [OM.PC] Routine 05/26/18 09:41 Sitz Bath [OM.PC] Per Unit Routine 05/26/18 09:42 VTE/DVT Education [RC] Click to Edit Ice Therapy [OM.PC] Per Unit Routine Perineal Care [OM.PC] Per Unit Routine 05/27/18 06:00 CBC WITH AUTO DIFF [HEME] Routine - Assessment Assessment:: 05/26/2018 22 yo G1 now P1 delivered Vaginally with assist of a vacuum extractor Mediolateral episiotomy repaired hemorrhage Labs-O positive, Hep B neg, Hep C neg, HIV neg, RPR nonreactive, Rubella Nonimmune, GBS negative - Plan Plan:: 05/25/2018 22yo here at 39 4/7 weeks gestation SROM at home at 1345 Amnisure positive FHTs category one Contractions regular Patient tolerating pain currently but thinks she will want an epidural Plan- Monitor labor Monitor FHTs Up ad coy Regular diet CBC, UA Start Pitocin per protocol Pain management per patient request Plan and anticipate a vaginal delivery 05/26/2018 Routine cares Encourage good perineal care Encourage and support CBC tomorrow
--- NOTE | 2018-05-27 07:32 | PCM.PNPP ---
- General Info Date of Service: 05/27/18 ( day 1) Functional Status: Reports: Pain Controlled, Tolerating Diet, Ambulating, Urinating - Review of Systems General: Reports: No Symptoms HEENT: Reports: No Symptoms Pulmonary: Reports: No Symptoms Cardiovascular: Reports: No Symptoms Gastrointestinal: Reports: No Symptoms Genitourinary: Reports: No Symptoms Musculoskeletal: Reports: No Symptoms Skin: Reports: No Symptoms Neurological: Reports: No Symptoms Psychiatric: Reports: No Symptoms - General Info Date of Service: 05/27/18 - Patient Data Vital Signs - Most Recent: Last Vital Signs Temp 35.9 C 05/27/18 05:45 Pulse 71 05/27/18 05:45 Resp 18 05/27/18 05:45 BP 96/52 L 05/27/18 05:45 Pulse Ox 98 05/27/18 05:45 Weight - Most Recent: 77.564 kg Lab Results - Last 24 Hours: Laboratory Results - last 24 hr 05/27/18 Range/Units 06:03 WBC 12.3 H (4.5-11.0) K/uL RBC 3.34 (3.30-5.50) M/uL Hgb 10.8 L D (12.0-15.0) g/dL Hct 32.2 L (36.0-48.0) % MCV 96 (80-98) fL MCH 32 H (27-31) pg MCHC 34 (32-36) % Plt Count 132 L (150-400) K/uL Neut % (Auto) 72 H (36-66) % Lymph % (Auto) 16 L (24-44) % [place] % (Auto) 8 H (2-6) % Eos % (Auto) 5 H (2-4) % Baso % (Auto) 0 (0-1) % Med Orders - Current: Current Medications Acetaminophen (Tylenol) 650 mg PO Q4H PRN PRN Reason: Pain (mild 1-3) Acetaminophen (Tylenol Bulk Bottle) 325 - 650 mg PO Q4H PRN PRN Reason: Pain Last Admin: 05/26/18 10:10 Dose: 325 mg Acetaminophen/Codeine Phosphate (Tylenol With Codeine No.3 300mg/30mg) 1 tab PO Q4H PRN PRN Reason: Pain (moderate 4-6) Last Admin: 05/26/18 10:29 Dose: 1 tab Benzocaine (Laha-Z-Ltccwtw 20% [place]) 0 gm TOP Q4H PRN PRN Reason: Perineal Comfort Measure Last Admin: 05/26/18 10:10 Dose: 1 applic Docusate Sodium (Colace) 100 mg PO BID PRN PRN Reason: Constipation Last Admin: 05/26/18 16:11 Dose: 100 mg Emollient Ointment (Lansinoh Hpa) 0 gm TOP ASDIRECTED PRN PRN Reason: Sore Nipples Last Admin: 05/26/18 10:10 Dose: 1 applic Ephedrine Sulfate (Ephedrine Sulfate) 5 - 10 mg IV ASDIRECTED PRN PRN Reason: Systolic BP less than 100 Oxytocin/Sodium Chloride (Pitocin In Ns 20 Units/1,000 Ml) 20 unit in 1,000 mls @ 6 mls/hr IV TITRATE BERNARD; Protocol Last Titration: 05/26/18 06:30 Dose: 6 munits/min, 18 mls/hr Lactated Ringer's (Ringers, Lactated) 1,000 mls @ 125 mls/hr IV ASDIRECTED BERNARD Last Admin: 05/26/18 01:37 Dose: 125 mls/hr Ropivacaine (Naropin 0.2%) 100 mls @ 12 mls/hr EPIDUR ASDIRECTED BERNARD; Protocol Last Admin: 05/26/18 04:05 Dose: 12 mls/hr, 12 mls/hr Ibuprofen (Motrin Bulk Bottle) 600 mg PO Q6H PRN PRN Reason: Pain Last Admin: 05/26/18 10:09 Dose: 600 mg Naloxone HCl (Narcan) 0.1 mg IVPUSH Q5M PRN PRN Reason: IF RESP RATE LESS THAN 6 Ondansetron HCl (Zofran) 4 mg IV Q4H PRN PRN Reason: Nausea/Vomiting Sodium Chloride (Saline Flush) 10 ml FLUSH ASDIRECTED PRN PRN Reason: Keep Vein Open Witch Laurita (Tucks) 1 pad TOP ASDIRECTED PRN PRN Reason: Hemorrhoids Last Admin: 05/26/18 16:10 Dose: 1 package Discontinued Medications Carboprost Tromethamine (Hemabate Ds) Confirm Administered Dose 250 mcg .ROUTE .STK-MED ONE Stop: 05/26/18 08:03 Last Admin: 05/26/18 09:05 Dose: Not Given Ephedrine Sulfate (Ephedrine Sulfate) 5 mg IVPUSH ONETIME ONE Stop: 05/25/18 16:36 Last Admin: 05/26/18 05:31 Dose: Not Given Ephedrine Sulfate (Ephedrine Sulfate) Confirm Administered Dose 50 mg .ROUTE .STK-MED ONE Stop: 05/25/18 22:00 Last Admin: 05/26/18 05:32 Dose: Not Given Lactated Ringer's (Ringers, Lactated) 1,000 mls @ 999 mls/hr IV ONETIME ONE Stop: 05/25/18 17:35 Last Admin: 05/25/18 16:50 Dose: 999 mls/hr Ropivacaine (Naropin 0.2%) Confirm Administered Dose 100 mls @ as directed .ROUTE .STK-MED ONE Stop: 05/25/18 22:13 Oxytocin/Sodium Chloride (Pitocin In Ns 20 Units/1,000 Ml) 20 unit in 1,000 mls @ 999 mls/hr IV ONETIME ONE Stop: 05/26/18 09:30 Last Admin: 05/26/18 08:42 Dose: 999 mls/hr Methylergonovine Maleate (Methergine) 0.2 mg IM NOW ONE Stop: 05/26/18 08:05 Last Admin: 05/26/18 08:04 Dose: 0.2 mg Misoprostol (Cytotec) 800 mcg RECTAL ONETIME ONE Stop: 05/26/18 08:34 Last Admin: 05/26/18 08:33 Dose: 800 mcg - Interaction Disposition, : [place] in Room with Family Infant Interaction: Holding Infant Infant Feeding: Breastfed Infant; Nursed Well Support Person: - Recovery Exam Fundal Tone: Firm Fundal Level: 1 Fingerbreadths Below Umbilicus Fundal Placement: Midline Lochia Amount: Small Lochia Color: Rubra/Red Perineum Description: Intact, Minimal Bruising/Swelling Episiotomy/Laceration: Approximated Bladder Status: Voiding Urinary Elimination: Voided - Exam General: Alert, Oriented, No Acute Distress HEENT: Pupils Equal, Pupils Reactive, Mucous Membr. Moist/[place] Neck: Supple Lungs: Clear to Auscultation, Normal Respiratory Effort Cardiovascular: Regular Rate, Regular Rhythm GI/Abdominal Exam: Normal Bowel Sounds, Soft, No Distention, No Mass, Pelvis Stable Extremities: Normal Inspection, Normal Range of Motion, No Pedal Edema, Normal Capillary Refill Skin: Warm, Dry Wound/Incisions: Healing Well (less sore than yesterday) Neurological: No New Focal Deficit, Normal Gait, Normal Speech, Normal Tone Psy/Mental Status: Alert, Normal Affect, Normal Mood - Problem List & Annotations (1) Lactating mother SNOMED Code(s): 645346594, 751965562 Code(s): Z39.1 - ENCOUNTER FOR CARE AND EXAMINATION OF LACTATING MOTHER Status: Acute Current Visit: Yes (2) Discomfort at episiotomy site SNOMED Code(s): 943007218, 427211665 Code(s): G89.18 - OTHER ACUTE POSTPROCEDURAL PAIN Status: Acute Current Visit: Yes (3) Laceration of vagina SNOMED Code(s): 458932140 Code(s): S31.41XA - LACERATION W/O FOREIGN BODY OF VAGINA AND VULVA, INIT ENCNTR Status: Acute Current Visit: Yes Qualifiers: Encounter type: initial encounter Qualified Code(s): S31.41XA - Laceration without foreign body of vagina and vulva, initial encounter Annotation/Comment:: episiotomy was cut mediolateral (4) Normal vaginal delivery SNOMED Code(s): 87808534 Code(s): O80 - ENCOUNTER FOR FULL-TERM UNCOMPLICATED DELIVERY Status: Acute Current Visit: Yes - Problem List Review Problem List Initiated/Reviewed/Updated: Yes - Assessment Assessment:: 05/26/2018 22 yo G1 now P1 delivered Vaginally with assist of a vacuum extractor Mediolateral episiotomy repaired hemorrhage Labs-O positive, Hep B neg, Hep C neg, HIV neg, RPR nonreactive, Rubella Nonimmune, GBS negative 05/27/18 22 year old day 1 Hgb stable at 10.8 and patient is asymptomatic Nipples intact, not sore reported as going well by mother Episiotomy healing well, sore - Plan Plan:: 05/25/2018 22yo here at 39 4/7 weeks gestation SROM at home at 1345 Amnisure positive FHTs category one Contractions regular Patient tolerating pain currently but thinks she will want an epidural Plan- Monitor labor Monitor FHTs Up ad coy Regular diet CBC, UA Start Pitocin per protocol Pain management per patient request Plan and anticipate a vaginal delivery 05/26/2018 Routine cares Encourage good perineal care Encourage and support CBC tomorrow 05/27/18 Continue routine cares Soak in tub today for perineal care Encourage routine RANGEL pain medication and stool softener once per day support today Ambulate in halls Anticipate discharge home tomorrow morning
[2018-05-27] MEDS: Docusate Sodium 100 MG Cap PO PRN (16:04)
[2018-05-28] MEDS: Docusate Sodium 100 MG Cap PO PRN (08:08)
--- NOTE | 2018-05-28 09:04 | PCM.PNPP ---
- General Info Date of Service: 05/28/18 (Discharge) Functional Status: Reports: Pain Controlled - Review of Systems General: Reports: No Symptoms HEENT: Reports: No Symptoms Pulmonary: Reports: No Symptoms Cardiovascular: Reports: No Symptoms Gastrointestinal: Reports: No Symptoms Genitourinary: Reports: No Symptoms Musculoskeletal: Reports: No Symptoms Skin: Reports: No Symptoms Neurological: Reports: No Symptoms Psychiatric: Reports: No Symptoms - General Info Date of Service: 05/28/18 - Patient Data Vital Signs - Most Recent: Last Vital Signs Temp 36.7 C 05/28/18 08:00 Pulse 64 05/28/18 08:00 Resp 16 05/28/18 08:00 BP 102/58 L 05/28/18 08:00 Pulse Ox 99 05/28/18 08:00 Weight - Most Recent: 77.564 kg Med Orders - Current: Current Medications Acetaminophen (Tylenol) 650 mg PO Q4H PRN PRN Reason: Pain (mild 1-3) Acetaminophen (Tylenol Bulk Bottle) 325 - 650 mg PO Q4H PRN PRN Reason: Pain Last Admin: 05/26/18 10:10 Dose: 325 mg Acetaminophen/Codeine Phosphate (Tylenol With Codeine No.3 300mg/30mg) 1 tab PO Q4H PRN PRN Reason: Pain (moderate 4-6) Last Admin: 05/26/18 10:29 Dose: 1 tab Benzocaine (Ttxu-C-Kdznebv 20% [place]) 0 gm TOP Q4H PRN PRN Reason: Perineal Comfort Measure Last Admin: 05/26/18 10:10 Dose: 1 applic Docusate Sodium (Colace) 100 mg PO BID PRN PRN Reason: Constipation Last Admin: 05/28/18 08:08 Dose: 100 mg Emollient Ointment (Lansinoh Hpa) 0 gm TOP ASDIRECTED PRN PRN Reason: Sore Nipples Last Admin: 05/26/18 10:10 Dose: 1 applic Ephedrine Sulfate (Ephedrine Sulfate) 5 - 10 mg IV ASDIRECTED PRN PRN Reason: Systolic BP less than 100 Oxytocin/Sodium Chloride (Pitocin In Ns 20 Units/1,000 Ml) 20 unit in 1,000 mls @ 6 mls/hr IV TITRATE BERNARD; Protocol Last Titration: 05/26/18 06:30 Dose: 6 munits/min, 18 mls/hr Lactated Ringer's (Ringers, Lactated) 1,000 mls @ 125 mls/hr IV ASDIRECTED [facility] Last Admin: 05/26/18 01:37 Dose: 125 mls/hr Ropivacaine (Naropin 0.2%) 100 mls @ 12 mls/hr EPIDUR ASDIRECTED BERNARD; Protocol Last Admin: 05/26/18 04:05 Dose: 12 mls/hr, 12 mls/hr Ibuprofen (Motrin Bulk Bottle) 600 mg PO Q6H PRN PRN Reason: Pain Last Admin: 05/26/18 10:09 Dose: 600 mg Naloxone HCl (Narcan) 0.1 mg IVPUSH Q5M PRN PRN Reason: IF RESP RATE LESS THAN 6 Ondansetron HCl (Zofran) 4 mg IV Q4H PRN PRN Reason: Nausea/Vomiting Sodium Chloride (Saline Flush) 10 ml FLUSH ASDIRECTED PRN PRN Reason: Keep Vein Open Domi Shay (Henrique) 1 pad TOP ASDIRECTED PRN PRN Reason: Hemorrhoids Last Admin: 05/26/18 16:10 Dose: 1 package Discontinued Medications Carboprost Tromethamine (Hemabate Ds) Confirm Administered Dose 250 mcg .ROUTE .STK-MED ONE Stop: 05/26/18 08:03 Last Admin: 05/26/18 09:05 Dose: Not Given Ephedrine Sulfate (Ephedrine Sulfate) 5 mg IVPUSH ONETIME ONE Stop: 05/25/18 16:36 Last Admin: 05/26/18 05:31 Dose: Not Given Ephedrine Sulfate (Ephedrine Sulfate) Confirm Administered Dose 50 mg .ROUTE .STK-MED ONE Stop: 05/25/18 22:00 Last Admin: 05/26/18 05:32 Dose: Not Given Lactated Ringer's (Ringers, Lactated) 1,000 mls @ 999 mls/hr IV ONETIME ONE Stop: 05/25/18 17:35 Last Admin: 05/25/18 16:50 Dose: 999 mls/hr Ropivacaine (Naropin 0.2%) Confirm Administered Dose 100 mls @ as directed .ROUTE .STK-MED ONE Stop: 05/25/18 22:13 Oxytocin/Sodium Chloride (Pitocin In Ns 20 Units/1,000 Ml) 20 unit in 1,000 mls @ 999 mls/hr IV ONETIME ONE Stop: 05/26/18 09:30 Last Admin: 05/26/18 08:42 Dose: 999 mls/hr Methylergonovine Maleate (Methergine) 0.2 mg IM NOW ONE Stop: 05/26/18 08:05 Last Admin: 05/26/18 08:04 Dose: 0.2 mg Misoprostol (Cytotec) 800 mcg RECTAL ONETIME ONE Stop: 05/26/18 08:34 Last Admin: 05/26/18 08:33 Dose: 800 mcg - Interaction Disposition, : [place] in Room with Family Interaction: Holding Infant Infant Feeding: Breastfed Infant; Nursed Well Support Person: - Recovery Exam Fundal Tone: Firm Fundal Level: 3 Fingerbreadths Below Umbilicus Fundal Placement: Midline Lochia Amount: Small Lochia Color: Rubra/Red Perineum Description: Intact, Minimal Bruising/Swelling Episiotomy/Laceration: Approximated Bladder Status: Voiding Urinary Elimination: Voided - Exam General: Alert, Oriented HEENT: Pupils Equal Neck: Supple Lungs: Clear to Auscultation Cardiovascular: Regular Rate, Regular Rhythm GI/Abdominal Exam: Normal Bowel Sounds, Soft, Non-Tender, No Organomegaly, No Distention, No Abnormal Bruit, No Mass, Pelvis Stable Extremities: Normal Inspection, Normal Range of Motion, Non-Tender, No Pedal Edema, Normal Capillary Refill Skin: Warm, Dry, Intact Wound/Incisions: Healing Well Neurological: No New Focal Deficit Psy/Mental Status: Alert, Normal Affect, Normal Mood - Problem List & Annotations (1) Lactating mother SNOMED Code(s): 496450246, 362273010 Code(s): Z39.1 - ENCOUNTER FOR CARE AND EXAMINATION OF LACTATING MOTHER Status: Acute Current Visit: Yes (2) Discomfort at episiotomy site SNOMED Code(s): 576298047, 951008107 Code(s): G89.18 - OTHER ACUTE POSTPROCEDURAL PAIN Status: Acute Current Visit: Yes (3) Laceration of vagina SNOMED Code(s): 017936440 Code(s): S31.41XA - LACERATION W/O FOREIGN BODY OF VAGINA AND VULVA, INIT ENCNTR Status: Acute Current Visit: Yes Qualifiers: Encounter type: initial encounter Qualified Code(s): S31.41XA - Laceration without foreign body of vagina and vulva, initial encounter Annotation/Comment:: episiotomy was cut mediolateral (4) Normal vaginal delivery SNOMED Code(s): 29490452 Code(s): O80 - ENCOUNTER FOR FULL-TERM UNCOMPLICATED DELIVERY Status: Acute Current Visit: Yes - Problem List Review Problem List Initiated/Reviewed/Updated: Yes - My Orders Last 24 Hours: My Active Orders 05/28/18 08:59 Ready for Discharge [RC] PER UNIT ROUTINE - Assessment Assessment:: 05/26/2018 22 yo G1 now P1 delivered Vaginally with assist of a vacuum extractor Mediolateral episiotomy repaired hemorrhage Labs-O positive, Hep B neg, Hep C neg, HIV neg, RPR nonreactive, Rubella Nonimmune, GBS negative 05/27/18 22 year old day 1 Hgb stable at 10.8 and patient is asymptomatic Nipples intact, not sore reported as going well by mother Episiotomy healing well, sore 05/28/18 day 2 , expresses readiness to go home Episiotomy less sore today Bleeding scant to light, no clots Nipples intact, mildly sore, going very well course uncomplicated - Plan Plan:: 05/25/2018 22yo here at 39 4/7 weeks gestation SROM at home at 1345 Amnisure positive FHTs category one Contractions regular Patient tolerating pain currently but thinks she will want an epidural Plan- Monitor labor Monitor FHTs Up ad coy Regular diet CBC, UA Start Pitocin per protocol Pain management per patient request Plan and anticipate a vaginal delivery 05/26/2018 Routine cares Encourage good perineal care Encourage and support CBC tomorrow 05/27/18 Continue routine cares Soak in tub today for perineal care Encourage routine RANGEL pain medication and stool softener once per day support today Ambulate in halls Anticipate discharge home tomorrow morning 05/28/18 Discharge home today Continue support as needed 6 week exam, 2 week nurse visit for depression screening Education done regarding bleeding, infection, and normal course
== END 2018-05-28 11:30 | disposition home or self-care (01) | DRG 806 ==
LOC: JP.OBCHECK 14:55 → JP.OB 16:06 → OBSVTOIN 05-26 07:57 → JP.MS 05-26 14:43
PROVIDERS: ADMIT Advanced Practice Midwife; ATTEND Advanced Practice Midwife
PROC: 00HU33Z Insertion of Infusion Device into Spinal Canal, Percutaneous Approach (ICD-10-PCS; 2018-05-25)
PROC: 10D07Z6 Extraction of Products of Conception, Vacuum, Via Natural or Artificial Opening (ICD-10-PCS; principal; 2018-05-26)
PROC: 0W8NXZZ Division of Female Perineum, External Approach (ICD-10-PCS; 2018-05-26)
PROC: 0HQ9XZZ Repair Perineum Skin, External Approach (ICD-10-PCS; 2018-05-26)
DX: O36.63X0 Maternal care for excessive fetal growth, third trimester, not applicable or unspecified (principal); O72.1 Other immediate postpartum hemorrhage; Z37.0 Single live birth; Z3A.39 39 weeks gestation of pregnancy
CPT/HCPCS: 36415; 51702; 59409; 80305-QW; 81001; 84112; 85025; 99211; A9270-GY; J2210; J2590; J2795; J7120

== ENCOUNTER 2020-03-24 19:31 | Inpatient (IN) | payer OTHER ==
[2020-03-24] MEDS ORDERED: fentaNYL 100 MCG/2 ML SDV IVPUSH PRN (20:59)
[2020-03-24] MEDS ORDERED: Sodium Chloride 0.9% 10 ML Syringe FLUSH PRN ×2 (20:59→22:25)
--- NOTE | 2020-03-24 21:07 | PCM.LDHP ---
L&D History of Present Illness - General Date of Service: 03/24/20 (labor) Admit Problem/Dx: Patient Status Order with Admit Dx/Problem 03/24/20 20:59 Patient Status [ADT] Routine Admission Diagnosis/Problem Admission Diagnosis/Problem Labor established Source of Information: Patient History Limitations: Reports: No Limitations - History of Present Illness Introduction:: This 24 year old presented in labor. Yasmany every 3 minutes. No leaking of fluid and baby moving. She is 39 3/7 weeks . Contractions started this morning and were on and off. This evening they became stronger and consistent. Lbas: GBS neg HIV neg HGB 11.8 PLT 194 ABO O pos Timing/Duration: Reports: minutes: (3), constant/continuous Location, : Reports: Lower back Quality: Reports: Ache Severity: Moderate Improves with: Reports: None Worsens with: Reports: None - Related Data Allergies/Adverse Reactions: Allergies Allergy/AdvReac Type Severity Reaction Status Date / Time No Known Allergies Allergy Verified 05/24/18 12:55 Home Medications: Home Meds No115/Iron/Folic Acid [ 19 Chewable Tablet] 2 cap PO DAILY 05/25/18 [History] Past Medical History - Past Health History Medical/Surgical History: Denies Medical/Surgical History Gastrointestinal History: Reports: Other (See Below) Other Gastrointestinal History: hx stomach ulcers FREE LANCE ARTIST History: Reports: : 2 Para: 1 LMP (Approximate): (THIERRY 03/28/20) Hematologic History: Reports: Other (See Below) Other Hematologic History: taking iron this , not diagnosed as deficient Dermatologic History: Reports: Other (See Below) Other Dermatologic History: cyst removed on left cheek - Infectious Disease History Infectious Disease History: Reports: Chicken Pox Social & Family History - Family History Family Medical History: No Pertinent Family History HEENT: Reports: Impaired Vision Cardiac: Reports: Heart Murmur GI: Reports: GI bleed Neurological: Reports: TIA Endocrine/Metabolic: Reports: Diabetes, type II - Tobacco Use Tobacco Use Status *Q: Never Tobacco User - Caffeine Use Caffeine Use: Reports: None - Recreational Drug Use Recreational Drug Use: No H&P Review of Systems - Review of Systems: Review Of Systems: See Below L&D Exam - Exam Exam: See Below - Vital Signs Vital Signs: Last Vital Signs Temp 97.5 F 03/24/20 20:00 Pulse 94 03/24/20 20:00 Resp 16 03/24/20 20:00 BP 128/66 03/24/20 20:00 Pulse Ox 97 03/24/20 20:00 - OB Specific Contraction Intensity: Moderate Movement: Active Heart Tones: Present Heart Tones per Min: 145 Heart Rate (FHR) Variability: Moderate (6-25 bmp) Presentation: Vertex Estimated Weight: 8-9 pounds - Viveros Score Viveros Score Cervix Position: Anterior Viveros Score Consistency: Soft Viveros Score Effacement: >80% Viveros Score Dilation: > 5 cm Viveros Score 's Station: +1, +2 Viveros Score Total: 13 - Exam General: Alert, Oriented HEENT: PERRLA, Mucosa Moist & [place], Pupils Equal Neck: Trachea Midline Lungs: Normal Respiratory Effort Cardiovascular: Regular Rate, Regular Rhythm GI/Abdominal Exam: Soft, Non-Tender Rectal Exam: Normal Rectal Tone Genitourinary: Cervical dilitation, Enlarged uterus, Other (AROM large amouint of clear fluid.) Back Exam: Normal Inspection, Full Range of Motion Extremities: No Pedal Edema, Normal Capillary Refill Skin: Warm Neurological: Cranial Nerves Intact Psychiatric: Alert, Normal Affect, Normal Mood - Patient Data Lab Results Last 24 hrs: Laboratory Results - last 24 hr 03/24/20 03/24/20 03/24/20 Range/Units 19:46 20:17 20:20 WBC 9.5 (4.5-11.0) K/uL RBC 3.86 (3.30-5.50) M/uL Hgb 11.8 L (12.0-15.0) g/dL Hct 37.1 (36.0-48.0) % MCV 96 (80-98) fL MCH 31 (27-31) pg MCHC 32 (32-36) % Plt Count 194 (150-400) K/uL Urine Color Yellow (YELLOW) Urine Appearance Slightly cloudy A (CLEAR) Urine pH 7.0 (5.0-8.0) Ur Specific [place] 1.015 (1.008-1.030) Urine Protein Negative (NEGATIVE) mg/dL Urine Glucose (UA) Negative (NEGATIVE) mg/dL Urine Ketones Trace H (NEGATIVE) mg/dL Urine Occult Blood Negative (NEGATIVE) Urine Nitrite Negative (NEGATIVE) Urine Bilirubin Negative (NEGATIVE) Urine Urobilinogen 0.2 (0.2-1.0) EU/dL Ur Leukocyte Esterase Negative (NEGATIVE) Urine RBC Not seen (0-5) Urine WBC Not seen (0-5) Ur Epithelial Cells Few Urine Bacteria Rare Urine Opiates Screen Negative (NEGATIVE) Ur Oxycodone Screen Negative (NEGATIVE) Urine Methadone Screen Negative (NEGATIVE) Ur Propoxyphene Screen Negative (NEGATIVE) Ur Barbiturates Screen Negative (NEGATIVE) Ur Tricyclics Screen Negative (NEGATIVE) Ur Phencyclidine Scrn Negative (NEGATIVE) Ur Amphetamine Screen Negative (NEGATIVE) U Methamphetamines Scrn Negative (NEGATIVE) Urine MDMA Screen Negative (NEGATIVE) U Benzodiazepines Scrn Negative (NEGATIVE) U Cocaine Metab Screen Negative (NEGATIVE) U Marijuana (THC) Screen Negative (NEGATIVE) SARS CoV-2 RNA Rapid GIACOMO 03/24/20 Range/Units 20:20 WBC (4.5-11.0) K/uL RBC (3.30-5.50) M/uL Hgb (12.0-15.0) g/dL Hct (36.0-48.0) % MCV (80-98) fL MCH (27-31) pg MCHC (32-36) % Plt Count (150-400) K/uL Urine Color (YELLOW) Urine Appearance (CLEAR) Urine pH (5.0-8.0) Ur Specific [place] (1.008-1.030) Urine Protein (NEGATIVE) mg/dL Urine Glucose (UA) (NEGATIVE) mg/dL Urine Ketones (NEGATIVE) mg/dL Urine Occult Blood (NEGATIVE) Urine Nitrite (NEGATIVE) Urine Bilirubin (NEGATIVE) Urine Urobilinogen (0.2-1.0) EU/dL Ur Leukocyte Esterase (NEGATIVE) Urine RBC (0-5) Urine WBC (0-5) Ur Epithelial Cells Urine Bacteria Urine Opiates Screen (NEGATIVE) Ur Oxycodone Screen (NEGATIVE) Urine Methadone Screen (NEGATIVE) Ur Propoxyphene Screen (NEGATIVE) Ur Barbiturates Screen (NEGATIVE) Ur Tricyclics Screen (NEGATIVE) Ur Phencyclidine Scrn (NEGATIVE) Ur Amphetamine Screen (NEGATIVE) U Methamphetamines Scrn (NEGATIVE) Urine MDMA Screen (NEGATIVE) U Benzodiazepines Scrn (NEGATIVE) U Cocaine Metab Screen (NEGATIVE) U Marijuana (THC) Screen (NEGATIVE) SARS CoV-2 RNA Rapid GIACOMO Negative Result Diagrams: 03/24/20 20:20 - Problem List (1) First stage of labor established SNOMED Code(s): 897263692 ICD Code: RBS0844 - Status: Acute Current Visit: No (2) SNOMED Code(s): 70342340 ICD Code: Z34.90 - ENCNTR FOR SUPRVSN OF NORMAL , UNSP, UNSP TRIMESTER Status: Acute Current Visit: No Qualifiers: Weeks of gestation: 39 weeks Problem List Initiated/Reviewed/Updated: Yes Orders Last 24hrs: Active Orders 24 hr Category Date Time Status Patient Status [ADT] Routine ADT 03/24/20 20:59 Ordered Communication Order [RC] ASDIRECTED Care 03/24/20 20:59 Ordered Communication Order [RC] Per Unit Routine Care 03/24/20 20:59 Ordered Communication Order [RC] Per Unit Routine Care 03/24/20 20:59 Ordered Communication Order [RC] Per Unit Routine Care 03/24/20 20:59 Ordered Heart Tones [RC] PER UNIT ROUTINE Care 03/24/20 20:59 Ordered Non Stress Test [RC] Click to Edit Care 03/24/20 20:59 Ordered May Shower [RC] ASDIRECTED Care 03/24/20 20:59 Ordered Nitrous Oxide Delivery [RC] ASDIRECTED Care 03/24/20 20:59 Ordered Notify Provider Vital Signs [RC] PRN Care 03/24/20 20:59 Ordered Notify Provider [RC] PRN Care 03/24/20 20:59 Ordered OB Check [OM.PC] Click to Edit Care 03/24/20 19:33 Ordered Oxygen Therapy [RC] ASDIRECTED Care 03/24/20 20:59 Ordered Pulse Oximetry [RC] ASDIRECTED Care 03/24/20 20:59 Ordered Up ad [place] [RC] ASDIRECTED Care 03/24/20 20:59 Ordered Verify Patient Consent Obtain [RC] ASDIRECTED Care 03/24/20 20:59 Ordered Vital Signs [RC] PER UNIT ROUTINE Care 03/24/20 20:59 Ordered Vital Signs [RC] PER UNIT ROUTINE Care 03/24/20 20:59 Ordered Regular Diet [DIET] Diet 03/25/20 Breakfast Ordered Sodium Chloride 0.9% [Saline Flush] Med 03/24/20 20:59 Ordered 10 ml FLUSH ASDIRECTED PRN fentaNYL [Sublimaze] Med 03/24/20 20:59 Ordered 100 mcg IVPUSH Q1H PRN Saline Lock Insert [OM.PC] Routine Oth 03/24/20 20:59 Ordered Resuscitation Status Routine Resus Stat 03/24/20 20:59 Ordered Medication Orders Fentanyl (Sublimaze) 100 mcg IVPUSH Q1H PRN PRN Reason: Pain (moderate 4-6) Sodium Chloride (Saline Flush) 10 ml FLUSH ASDIRECTED PRN PRN Reason: Keep Vein Open Assessment/Plan Comment:: 03/24/20 24 year old 39 3/7 weeks in active labor AROM for alrge amount of clear fluid ce: /+1 Cat one strip, baseline FHT 145 Plan: anticipate vaginal delivery She would like nitrous for pain management
[2020-03-24] MEDS ORDERED: ePHEDrine 50 MG/ML SDV IVPUSH PRN (22:25)
[2020-03-24] MEDS ORDERED: Naloxone 0.4 MG/ML SDV IVPUSH PRN (22:25)
[2020-03-24] MEDS ORDERED: diphenhydrAMINE 50 MG/ML SDV IVPUSH PRN ×2 (22:25)
[2020-03-24] MEDS ORDERED: Lactated Ringers 1,000 ML IV ONE (22:27)
[2020-03-24] MEDS ORDERED: Ropivacaine 200 MG in Premix Bag 1 BAG EPIDUR SCH (22:30)
--- NOTE | 2020-03-24 22:35 | PCM.PNLD ---
Labor Progress Note - VS & Meds Vital Signs: Last Vital Signs Temp 97.5 F 03/24/20 20:00 Pulse 94 03/24/20 20:00 Resp 16 03/24/20 20:00 BP 128/66 03/24/20 20:00 Pulse Ox 97 03/24/20 21:00 Active Medications: Current Medications Diphenhydramine HCl (Benadryl) 25 mg IVPUSH Q6H PRN PRN Reason: Itching Diphenhydramine HCl (Benadryl) 50 mg IVPUSH Q6H PRN PRN Reason: Itching Ephedrine Sulfate (Ephedrine Sulfate) 10 mg IVPUSH ASDIRECTED PRN PRN Reason: Hypotension Fentanyl (Sublimaze) 100 mcg IVPUSH Q1H PRN PRN Reason: Pain (moderate 4-6) Last Admin: 03/24/20 22:18 Dose: 100 mcg Documented by: Ropivacaine 200 mg/ Premix 100 mls @ 0 mls/hr EPIDUR ASDIRECTED BERNARD Lactated Ringer's (Ringers, Lactated) 1,000 mls @ 999 mls/hr IV BOLUS ONE Stop: 03/24/20 23:27 Naloxone HCl (Narcan) 0.1 mg IVPUSH ASDIRECTED PRN PRN Reason: Oversedation Sodium Chloride (Saline Flush) 10 ml FLUSH ASDIRECTED PRN PRN Reason: Keep Vein Open Sodium Chloride (Saline Flush) 10 ml FLUSH ASDIRECTED PRN PRN Reason: Keep Vein Open - Uterine Contractions Uterine Monitoring Mode: External [place] Contraction Intensity: Strong Uterine Resting Tone: Soft - Monitoring Monitor Mode: Doppler/Auscultation Heart Rate (FHR) Baseline: 140 Heart Rate (FHR) Variability: Moderate (6-25 bmp) Accelerations: Present, 15x15 Decelerations: Early Strip Review: Category II - Vaginal Exam Dilation (cm): 9 Effacement (Percent): 100 Station: 2 Cervical Position: Anterior Sterile Vaginal Exam Performed By: Osiris Stanley - Labor Progress (Free Text) Labor Progress: will be able to push soon requesting epidural, TRIMMING MACHINE SET UP OPERATOR called and fluid infusing Vaginal delivery soon
[2020-03-24] MEDS ORDERED: Acetaminophen 325 MG Tab, 50 Tab Bulk Bottle PO PRN (23:34)
[2020-03-24] MEDS ORDERED: Ibuprofen 200 MG Tab, 24 Tab Bulk Bottle PO PRN (23:34)
[2020-03-24] MEDS ORDERED: Lanolin 100% Cream 40 GM Tube TOP ONE (23:34)
[2020-03-24] MEDS ORDERED: Benzocaine 20% Top Spray 56 GM Bottle TOP ONE (23:34)
[2020-03-24] MEDS ORDERED: Witch Hazel Medicated Pads 100/Jar TOP ONE (23:34)
--- NOTE | 2020-03-24 23:44 | PCM.DEL ---
L & D Note - General Info Date of Service: 03/24/20 Mother's Due Date: 03/28/20 - Delivery Note Labor: Spontaneous Delivery Outcome: Livebirth Infant Delivery Mode: Spontaneous Presentation: Right Occiput Anterior (EDWIN) Nuchal Cord: Present, Reduced Anesthesia Type: Nitrous Oxide Amniotic Fluid Description: Clear Episiotomy Type: None Laceration: None Placenta: Intact, Spontaneous Cord: 3 Vessels Estimated Blood Loss: 200 Resuscitation Needed: No [place]: Stimulated, Warmed, [place] Used Provider: Osiris Stanley Score 1 min: 8 (color) Score 5 min: 9 (color) Second Stage Interventions: Reports: Second Nurse Reviewed Heart Tones, Encouragement Given, Pushing Effectively, Pushing, McRobert's Position Delivery Comments (Free Text/Narrative):: This 24 year old G2 now P2 who is 39 3/7 weeks gestation delivered via a viable female infant over an intact perineum at 2305 in EDWIN position. The had a nuchal cord which was reduced after delivery of the head then baby was placed on mother's chest where she cried spontaneously. she was dried and stimulated and had Apgars of 8 & 9 all for color. Three vessel cord. Active management of the third stage and delayed cord clamping were done. The placenta was expressed spontaneously intact. No lacerations were found of the cervix, vagina, perineum or rectum. EBL 200cc Mother and baby to post in good condition. weight 8-8 First stage 0069-7798 second stage 5209-9540 third stage 0669-0855 - General Info Date of Service: 03/24/20 Admission Dx/Problem (Free Text): Patient Status Order with Admit Dx/Problem 03/24/20 20:59 Patient Status [ADT] Routine Admission Diagnosis/Problem Admission Diagnosis/Problem Labor established Functional Status: Reports: Pain Controlled - Review of Systems General: Reports: No Symptoms HEENT: Reports: No Symptoms Pulmonary: Reports: No Symptoms Cardiovascular: Reports: No Symptoms Gastrointestinal: Reports: No Symptoms Genitourinary: Reports: No Symptoms Musculoskeletal: Reports: No Symptoms Skin: Reports: No Symptoms Neurological: Reports: No Symptoms Psychiatric: Reports: No Symptoms - Patient Data Vitals - Most Recent: Last Vital Signs Temp 97.5 F 03/24/20 20:00 Pulse 94 03/24/20 20:00 Resp 16 03/24/20 20:00 BP 128/66 03/24/20 20:00 Pulse Ox 97 03/24/20 21:00 Weight - Most Recent: 180 lb Lab Results Last 24 Hours: Laboratory Results - last 24 hr 03/24/20 03/24/20 03/24/20 Range/Units 19:46 20:17 20:20 WBC 9.5 (4.5-11.0) K/uL RBC 3.86 (3.30-5.50) M/uL Hgb 11.8 L (12.0-15.0) g/dL Hct 37.1 (36.0-48.0) % MCV 96 (80-98) fL MCH 31 (27-31) pg MCHC 32 (32-36) % Plt Count 194 (150-400) K/uL Urine Color Yellow (YELLOW) Urine Appearance Slightly cloudy A (CLEAR) Urine pH 7.0 (5.0-8.0) Ur Specific [place] 1.015 (1.008-1.030) Urine Protein Negative (NEGATIVE) mg/dL Urine Glucose (UA) Negative (NEGATIVE) mg/dL Urine Ketones Trace H (NEGATIVE) mg/dL Urine Occult Blood Negative (NEGATIVE) Urine Nitrite Negative (NEGATIVE) Urine Bilirubin Negative (NEGATIVE) Urine Urobilinogen 0.2 (0.2-1.0) EU/dL Ur Leukocyte Esterase Negative (NEGATIVE) Urine RBC Not seen (0-5) Urine WBC Not seen (0-5) Ur Epithelial Cells Few Urine Bacteria Rare Urine Opiates Screen Negative (NEGATIVE) Ur Oxycodone Screen Negative (NEGATIVE) Urine Methadone Screen Negative (NEGATIVE) Ur Propoxyphene Screen Negative (NEGATIVE) Ur Barbiturates Screen Negative (NEGATIVE) Ur Tricyclics Screen Negative (NEGATIVE) Ur Phencyclidine Scrn Negative (NEGATIVE) Ur Amphetamine Screen Negative (NEGATIVE) U Methamphetamines Scrn Negative (NEGATIVE) Urine MDMA Screen Negative (NEGATIVE) U Benzodiazepines Scrn Negative (NEGATIVE) U Cocaine Metab Screen Negative (NEGATIVE) U Marijuana (THC) Screen Negative (NEGATIVE) SARS CoV-2 RNA Rapid GIACOMO 03/24/20 Range/Units 20:20 WBC (4.5-11.0) K/uL RBC (3.30-5.50) M/uL Hgb (12.0-15.0) g/dL Hct (36.0-48.0) % MCV (80-98) fL MCH (27-31) pg MCHC (32-36) % Plt Count (150-400) K/uL Urine Color (YELLOW) Urine Appearance (CLEAR) Urine pH (5.0-8.0) Ur Specific [place] (1.008-1.030) Urine Protein (NEGATIVE) mg/dL Urine Glucose (UA) (NEGATIVE) mg/dL Urine Ketones (NEGATIVE) mg/dL Urine Occult Blood (NEGATIVE) Urine Nitrite (NEGATIVE) Urine Bilirubin (NEGATIVE) Urine Urobilinogen (0.2-1.0) EU/dL Ur Leukocyte Esterase (NEGATIVE) Urine RBC (0-5) Urine WBC (0-5) Ur Epithelial Cells Urine Bacteria Urine Opiates Screen (NEGATIVE) Ur Oxycodone Screen (NEGATIVE) Urine Methadone Screen (NEGATIVE) Ur Propoxyphene Screen (NEGATIVE) Ur Barbiturates Screen (NEGATIVE) Ur Tricyclics Screen (NEGATIVE) Ur Phencyclidine Scrn (NEGATIVE) Ur Amphetamine Screen (NEGATIVE) U Methamphetamines Scrn (NEGATIVE) Urine MDMA Screen (NEGATIVE) U Benzodiazepines Scrn (NEGATIVE) U Cocaine Metab Screen (NEGATIVE) U Marijuana (THC) Screen (NEGATIVE) SARS CoV-2 RNA Rapid GIACOMO Negative Med Orders - Current: Current Medications Diphenhydramine HCl (Benadryl) 25 mg IVPUSH Q6H PRN PRN Reason: Itching Diphenhydramine HCl (Benadryl) 50 mg IVPUSH Q6H PRN PRN Reason: Itching Ephedrine Sulfate (Ephedrine Sulfate) 10 mg IVPUSH ASDIRECTED PRN PRN Reason: Hypotension Fentanyl (Sublimaze) 100 mcg IVPUSH Q1H PRN PRN Reason: Pain (moderate 4-6) Last Admin: 03/24/20 22:18 Dose: 100 mcg Documented by: Ropivacaine 200 mg/ Premix 100 mls @ 0 mls/hr EPIDUR ASDIRECTED BERNARD Naloxone HCl (Narcan) 0.1 mg IVPUSH ASDIRECTED PRN PRN Reason: Oversedation Sodium Chloride (Saline Flush) 10 ml FLUSH ASDIRECTED PRN PRN Reason: Keep Vein Open Sodium Chloride (Saline Flush) 10 ml FLUSH ASDIRECTED PRN PRN Reason: Keep Vein Open Discontinued Medications Lactated Ringer's (Ringers, Lactated) 1,000 mls @ 999 mls/hr IV BOLUS ONE Stop: 03/24/20 23:27 Last Admin: 03/24/20 22:00 Dose: 999 mls/hr Documented by: Oxytocin/Sodium Chloride (Pitocin In Ns 20 Units/1,000 Ml) Confirm Administered Dose 20 unit in 1,000 mls @ as directed .ROUTE .STK-MED ONE Stop: 03/24/20 22:46 - Exam General: Alert, Oriented HEENT: Pupils Equal Neck: Supple Lungs: Normal Respiratory Effort Cardiovascular: Regular Rate, Regular Rhythm GI/Abdominal Exam: Soft, Non-Tender (Female) Exam: Cervical Dilatation, Enlarged Uterus, Vaginal Bleeding Back Exam: Normal Inspection, Full Range of Motion Extremities: No Pedal Edema, Normal Capillary Refill Skin: Warm Psy/Mental Status: Alert, Normal Affect, Normal Mood - Problem List & Annotations (1) First stage of labor established SNOMED Code(s): 871413809 Code(s): UEG7907 - Status: Acute Current Visit: No (2) SNOMED Code(s): 34574409 Code(s): Z34.90 - ENCNTR FOR SUPRVSN OF NORMAL , UNSP, UNSP TRIMESTER Status: Acute Current Visit: No Qualifiers: Weeks of gestation: 39 weeks (3) Lactating mother SNOMED Code(s): 959075066, 890540049 Code(s): Z39.1 - ENCOUNTER FOR CARE AND EXAMINATION OF LACTATING MOTHER Status: Acute Current Visit: Yes (4) Normal vaginal delivery SNOMED Code(s): 80932684, 410310714 Code(s): O80 - ENCOUNTER FOR FULL-TERM UNCOMPLICATED DELIVERY Status: Acute Current Visit: Yes - Problem List Review Problem List Initiated/Reviewed/Updated: Yes - My Orders Last 24 Hours: My Active Orders 03/24/20 19:33 OB Check [OM.PC] Click to Edit 03/24/20 20:59 Communication Order [RC] ASDIRECTED Communication Order [RC] Per Unit Routine Communication Order [RC] Per Unit Routine Communication Order [RC] Per Unit Routine Heart Tones [RC] PER UNIT ROUTINE Non Stress Test [RC] Click to Edit May Shower [RC] ASDIRECTED Nitrous Oxide Delivery [RC] ASDIRECTED Notify Provider Vital Signs [RC] PRN Notify Provider [RC] PRN Oxygen Therapy [RC] ASDIRECTED Pulse Oximetry [RC] ASDIRECTED Up ad Sharon [RC] ASDIRECTED Verify Patient Consent Obtain [RC] ASDIRECTED Vital Signs [RC] PER UNIT ROUTINE Vital Signs [RC] PER UNIT ROUTINE Sodium Chloride 0.9% [Saline Flush] 10 ml FLUSH ASDIRECTED PRN fentaNYL [Sublimaze] 100 mcg IVPUSH Q1H PRN Saline Lock Insert [OM.PC] Routine 03/24/20 23:34 Patient Status [ADT] Routine Vital Signs [RC] PFP Acetaminophen [Tylenol Bulk Bottle] See Dose Instructions PO Q4H PRN Benzocaine [Nlks-D-Vkzzxph 20% [place]] See Dose Instructions TOP Q4H ONE Ibuprofen [Motrin Bulk Bottle] 600 mg PO Q6H PRN Lanolin [Lansinoh HPA] 1 gm TOP ASDIRECTED ONE witch Isela [Tucks] 1 pad TOP ASDIRECTED ONE Assess Lochia [WOMSER] Per Unit Routine Assess Uterine Involution [WOMSER] Per Unit Routine Resuscitation Status Routine 03/24/20 23:35 Perineal Care [OM.PC] Per Unit Routine Sitz Bath [OM.PC] Per Unit Routine 03/25/20 05:11 CBC W/O DIFF,HEMOGRAM [HEME] AM 03/25/20 Breakfast Regular Diet [DIET] - Assessment Assessment:: 03/24/20 24 year old without complications female breast feeding , healthy - Plan Plan:: 03/24/20 24 year old 39 3/7 weeks in active labor AROM for alrge amount of clear fluid ce: /+1 Cat one strip, baseline FHT 145 Plan: anticipate vaginal delivery She would like nitrous for pain management 03/24/20 Routine cares support breast feeding 24-48 hour stay
[2020-03-25] MEDS ORDERED: Lanolin 100% Cream 40 GM Tube TOP PRN (07:51)
[2020-03-25] MEDS ORDERED: Benzocaine 20% Top Spray 56 GM Bottle TOP PRN (07:51)
[2020-03-25] MEDS ORDERED: Witch Hazel Medicated Pads 100/Jar TOP PRN (07:52)
--- NOTE | 2020-03-25 08:15 | PCM.PNPP ---
- General Info Date of Service: 03/25/20 Functional Status: Reports: Pain Controlled - Review of Systems General: Reports: No Symptoms HEENT: Reports: No Symptoms Pulmonary: Reports: No Symptoms Cardiovascular: Reports: No Symptoms Gastrointestinal: Reports: No Symptoms Genitourinary: Reports: No Symptoms Musculoskeletal: Reports: No Symptoms Skin: Reports: No Symptoms Neurological: Reports: No Symptoms Psychiatric: Reports: No Symptoms - General Info Date of Service: 03/25/20 - Patient Data Vital Signs - Most Recent: Last Vital Signs Temp 36.2 C 03/25/20 07:32 Pulse 83 03/25/20 07:32 Resp 16 03/25/20 07:32 BP 104/65 03/25/20 07:32 Pulse Ox 98 03/25/20 07:32 Weight - Most Recent: 81.647 kg Lab Results - Last 24 Hours: Laboratory Results - last 24 hr 03/24/20 03/24/20 03/24/20 Range/Units 19:46 20:17 20:20 WBC 9.5 (4.5-11.0) K/uL RBC 3.86 (3.30-5.50) M/uL Hgb 11.8 L (12.0-15.0) g/dL Hct 37.1 (36.0-48.0) % MCV 96 (80-98) fL MCH 31 (27-31) pg MCHC 32 (32-36) % Plt Count 194 (150-400) K/uL Urine Color Yellow (YELLOW) Urine Appearance Slightly cloudy A (CLEAR) Urine pH 7.0 (5.0-8.0) Ur Specific [place] 1.015 (1.008-1.030) Urine Protein Negative (NEGATIVE) mg/dL Urine Glucose (UA) Negative (NEGATIVE) mg/dL Urine Ketones Trace H (NEGATIVE) mg/dL Urine Occult Blood Negative (NEGATIVE) Urine Nitrite Negative (NEGATIVE) Urine Bilirubin Negative (NEGATIVE) Urine Urobilinogen 0.2 (0.2-1.0) EU/dL Ur Leukocyte Esterase Negative (NEGATIVE) Urine RBC Not seen (0-5) Urine WBC Not seen (0-5) Ur Epithelial Cells Few Urine Bacteria Rare Urine Opiates Screen Negative (NEGATIVE) Ur Oxycodone Screen Negative (NEGATIVE) Urine Methadone Screen Negative (NEGATIVE) Ur Propoxyphene Screen Negative (NEGATIVE) Ur Barbiturates Screen Negative (NEGATIVE) Ur Tricyclics Screen Negative (NEGATIVE) Ur Phencyclidine Scrn Negative (NEGATIVE) Ur Amphetamine Screen Negative (NEGATIVE) U Methamphetamines Scrn Negative (NEGATIVE) Urine MDMA Screen Negative (NEGATIVE) U Benzodiazepines Scrn Negative (NEGATIVE) U Cocaine Metab Screen Negative (NEGATIVE) U Marijuana (THC) Screen Negative (NEGATIVE) SARS CoV-2 RNA Rapid GIACOMO 03/24/20 03/25/20 Range/Units 20:20 05:10 WBC 14.7 H (4.5-11.0) K/uL RBC 3.81 (3.30-5.50) M/uL Hgb 12.0 (12.0-15.0) g/dL Hct 36.5 (36.0-48.0) % MCV 96 (80-98) fL MCH 32 H (27-31) pg MCHC 33 (32-36) % Plt Count 183 (150-400) K/uL Urine Color (YELLOW) Urine Appearance (CLEAR) Urine pH (5.0-8.0) Ur Specific [place] (1.008-1.030) Urine Protein (NEGATIVE) mg/dL Urine Glucose (UA) (NEGATIVE) mg/dL Urine Ketones (NEGATIVE) mg/dL Urine Occult Blood (NEGATIVE) Urine Nitrite (NEGATIVE) Urine Bilirubin (NEGATIVE) Urine Urobilinogen (0.2-1.0) EU/dL Ur Leukocyte Esterase (NEGATIVE) Urine RBC (0-5) Urine WBC (0-5) Ur Epithelial Cells Urine Bacteria Urine Opiates Screen (NEGATIVE) Ur Oxycodone Screen (NEGATIVE) Urine Methadone Screen (NEGATIVE) Ur Propoxyphene Screen (NEGATIVE) Ur Barbiturates Screen (NEGATIVE) Ur Tricyclics Screen (NEGATIVE) Ur Phencyclidine Scrn (NEGATIVE) Ur Amphetamine Screen (NEGATIVE) U Methamphetamines Scrn (NEGATIVE) Urine MDMA Screen (NEGATIVE) U Benzodiazepines Scrn (NEGATIVE) U Cocaine Metab Screen (NEGATIVE) U Marijuana (THC) Screen (NEGATIVE) SARS CoV-2 RNA Rapid GIACOMO Negative Med Orders - Current: Current Medications Acetaminophen (Tylenol Bulk Bottle) 0 mg PO Q4H PRN PRN Reason: Pain Last Admin: 03/24/20 23:54 Dose: 1 bottle Documented by: Benzocaine (Tspe-[id number]-Jofbzev 20% [place]) 0 gm TOP Q4H PRN PRN Reason: perineal pain Emollient Ointment (Lansinoh Hpa) 1 gm TOP ASDIRECTED PRN PRN Reason: SORE NIPPLES Ibuprofen (Motrin Bulk Bottle) 600 mg PO Q6H PRN PRN Reason: Pain Last Admin: 03/24/20 23:54 Dose: 1 bottle Documented by: Sodium Chloride (Saline Flush) 10 ml FLUSH ASDIRECTED PRN PRN Reason: Keep Vein Open Sodium Chloride (Saline Flush) 10 ml FLUSH ASDIRECTED PRN PRN Reason: Keep Vein Open Witch Laurita (Tucks) 1 pad TOP ASDIRECTED PRN PRN Reason: perineum Discontinued Medications Benzocaine (Wwbw-K-Pqkoesh 20% [place]) 0 gm TOP Q4H ONE Stop: 03/24/20 23:35 Last Admin: 03/25/20 01:15 Dose: Not Given Documented by: Diphenhydramine HCl (Benadryl) 25 mg IVPUSH Q6H PRN PRN Reason: Itching Diphenhydramine HCl (Benadryl) 50 mg IVPUSH Q6H PRN PRN Reason: Itching Emollient Ointment (Lansinoh Hpa) 1 gm TOP ASDIRECTED ONE Stop: 03/24/20 23:35 Last Admin: 03/25/20 01:14 Dose: Not Given Documented by: Ephedrine Sulfate (Ephedrine Sulfate) 10 mg IVPUSH ASDIRECTED PRN PRN Reason: Hypotension Fentanyl (Sublimaze) 100 mcg IVPUSH Q1H PRN PRN Reason: Pain (moderate 4-6) Last Admin: 03/24/20 22:18 Dose: 100 mcg Documented by: Ropivacaine 200 mg/ Premix 100 mls @ 0 mls/hr EPIDUR ASDIRECTED BERNARD Lactated Ringer's (Ringers, Lactated) 1,000 mls @ 999 mls/hr IV BOLUS ONE Stop: 03/24/20 23:27 Last Admin: 03/24/20 22:00 Dose: 999 mls/hr Documented by: Oxytocin/Sodium Chloride (Pitocin In Ns 20 Units/1,000 Ml) Confirm Administered Dose 20 unit in 1,000 mls @ as directed .ROUTE .STK-MED ONE Stop: 03/24/20 22:46 Last Admin: 11/18/20 23:42 Dose: Not Given Documented by: Oxytocin/Sodium Chloride (Pitocin In Ns 20 Units/1,000 Ml) 20 unit in 1,000 mls @ 2,997 mls/hr IV TITRATE BERNARD; Protocol Last Titration: 03/24/20 23:11 Dose: 333 munits/min, 999 mls/hr Documented by: Naloxone HCl (Narcan) 0.1 mg IVPUSH ASDIRECTED PRN PRN Reason: Oversedation Domi Shay (Henrique) 1 pad TOP ASDIRECTED ONE Stop: 03/24/20 23:35 Last Admin: 03/25/20 01:15 Dose: Not Given Documented by: - Infant Interaction Disposition, : in Room with Family Interaction: Holding Feeding: Breastfed ; Nursed Well Support Person: - Recovery Exam Fundal Tone: Firm Fundal Level: At Umbilicus Fundal Placement: Midline Lochia Amount: Small Lochia Color: [place] Perineum Description: Intact, Minimal Bruising/Swelling Episiotomy/Laceration: None Bladder Status: Voiding Urinary Elimination: Voided - Exam General: Alert, Oriented, Cooperative HEENT: Pupils Equal, Pupils Reactive, EOMI, Mucous Membr. Moist/[place] Neck: Supple Lungs: Clear to Auscultation, Normal Respiratory Effort Cardiovascular: Regular Rate, Regular Rhythm GI/Abdominal Exam: Normal Bowel Sounds, Soft, Non-Tender, No Organomegaly, No Distention, No Abnormal Bruit, No Mass, Pelvis Stable Extremities: Normal Inspection, Normal Range of Motion, Non-Tender, No Pedal Edema, Normal Capillary Refill Skin: Warm, Dry, Intact Neurological: No New Focal Deficit Psy/Mental Status: Alert, Normal Affect, Normal Mood - Problem List & Annotations (1) Normal vaginal delivery SNOMED Code(s): 47127561, 237259260 Code(s): O80 - ENCOUNTER FOR FULL-TERM UNCOMPLICATED DELIVERY Status: Acute Current Visit: Yes (2) () SNOMED Code(s): 802920382 Code(s): Z78.9 - OTHER SPECIFIED HEALTH STATUS Status: Acute Current Visit: No - Problem List Review Problem List Initiated/Reviewed/Updated: Yes - Assessment Assessment:: 03/24/20 24 year old without complications female breast feeding , healthy 03/25/2020 day one without complications well Fundus firm and bleeding decreasing desires early discharge home today - Plan Plan:: 03/24/20 24 year old 39 3/7 weeks in active labor AROM for alrge amount of clear fluid ce: /+1 Cat one strip, baseline FHT 145 Plan: anticipate vaginal delivery She would like nitrous for pain management 03/24/20 Routine cares support breast feeding 24-48 hour stay 03/25/2020 Continue routine cares Continue to support breast feeding Discharge home today To see Inga in six weeks in clinic for visit
[2020-03-25] MEDS ORDERED: Docusate Sodium 100 MG Cap PO PRN (09:30)
== END 2020-03-25 13:10 | disposition home or self-care (01) | DRG 807 ==
LOC: JP.OBCHECK 19:31 → JP.OB 20:39 → OBSVTOIN 23:05 → JP.MS 03-25 00:30
PROVIDERS: ADMIT Nurse Practitioner Family; ATTEND Nurse Practitioner Family
PROC: 10E0XZZ Delivery of Products of Conception, External Approach (ICD-10-PCS; principal; 2020-03-24)
PROC: 10907ZC Drainage of Amniotic Fluid, Therapeutic from Products of Conception, Via Natural or Artificial Opening (ICD-10-PCS; 2020-03-24)
DX: O69.81X0 Labor and delivery complicated by cord around neck, without compression, not applicable or unspecified (principal); Z37.0 Single live birth; Z3A.39 39 weeks gestation of pregnancy; Z20.828 Contact with and (suspected) exposure to other viral communicable diseases
CPT/HCPCS: 36415; 59409; 80305-QW; 81001; 85027; 99211; A9270-GY; J2590; J3010; J7120; U0002